=== PATIENT | male | born 1960 | race Caucasian/White ===

== ENCOUNTER 2020-02-03 14:06 | Inpatient (IN) | payer OTHER ==
[~2020-02-03] VITALS: Ht 170.2 cm; Wt 112.5 kg
[2020-02-03] VITALS (29 sets, daily range): BP systolic 84–146; BP diastolic 36–123
[2020-02-03 15:03] LABS: INR 2.74 (0.85-1.17); PROTIME 28.6 SECONDS (11.6-15.0)
[2020-02-03 15:06] LABS: HEMOGLOBIN 15.8 g/dL (13.5-17.5); MCH 31.4 pg (26.0-34.0); MCHC 35.1 g/dL (31.0-37.0); MCV 89.5 fL (80.0-100.0); MEAN PLATELET VOLUME 9.2 fL (7.4-10.4); PLATELET COUNT 118 10x3/uL (130-400); RBC 5.03 10x6/uL (4.20-6.10); WBC 24.4 10x3/uL (4.8-10.8)
[2020-02-03 15:14] LABS: LYMPHOCYTES 10 % (15-50); NEUTROPHILS 87 % (40-80); PLATELET ESTIMATE DECREASED
[2020-02-03 15:18] LABS: ALBUMIN 3.5 g/dL (3.4-5.0); BILIRUBIN - TOTAL 3.76 mg/dL (0.2-1.3); CALCIUM 7.7 mg/dL (8.5-10.1); CREATININE - SERUM 3.8 mg/dL (0.6-1.3); PROTEIN - SERUM 6.5 g/dL (6.4-8.2)
[2020-02-03 15:28] LABS: ANION GAP 33.4 mmol/L (8-16)
[2020-02-03 15:31] LABS: CARBON DIOXIDE 7.6 mmol/L (21.0-32.0)
[2020-02-03 16:05] LABS: LIPASE 2942 U/L (73-393)
[2020-02-03 16:06] LABS: AMYLASE - SERUM 1802 U/L (25-115)
[2020-02-03 16:17] LABS: CKMB 28.3 U/L (0.0-3.6); CREATINE KINASE 439 UL (21-232)
[2020-02-03 16:34] LABS: TROPONIN-I 0.294 ng/mL (0.000-0.060)
[2020-02-03 17:13] LABS: BILIRUBIN NEGATIVE (NEGATIVE); KETONE NEGATIVE (NEGATIVE); NITRITE NEGATIVE (NEGATIVE); UROBILINOGEN NORMAL mg/dL (< 2)
[2020-02-03 17:16] LABS: BACTERIA MANY HPF (NONE SEEN); WHITE CELLS - URINE 0-5 HPF (0-1)
--- NOTE | 2020-02-03 19:31 | NUR ---
CALLED CONSULT TO DR SPRINGER, ORDERS RECIEVED FOR ABG'S WITH ONI AND CALL RESULTS
--- NOTE | 2020-02-03 19:47 | NUR ---
SPOKE WITH SOFIA FISHER ABOUT CONSULT, ECHO ORDERED FOR AM
[2020-02-03 22:36] LABS: CHLORIDE - SERUM 106 mmol/L (98-107); CREATINE KINASE 217 UL (21-232); SODIUM 148 mmol/L (136-145)
[2020-02-03 22:52] LABS: CALC OSMOLALITY 350 mosm/kg (275-300); CREATININE - SERUM 2.2 mg/dL (0.6-1.3); UREA NITROGEN 46 mg/dL (7-18)
[2020-02-03 22:53] LABS: CALCIUM < 5.0 mg/dL (8.5-10.1); CARBON DIOXIDE 35.4 mmol/L (21.0-32.0); eGFR NON AFRICAN AMERICAN 32 mL/min (90-120)
[2020-02-03 22:54] LABS: GLUCOSE 902 mg/dL (74-106); POTASSIUM - SERUM 2.7 mmol/L (3.5-5.1); TROPONIN-I 0.409 ng/mL (0.000-0.060)
--- NOTE | 2020-02-03 23:00 | NUR ---
CALLED DR RAYMOND, GIVEN LAB RESULTS, ORDERS RECIEVED, NEW IV SITED IN RIGHT HAND BY ALEXA EVANS, PT C/O NAUSEA, GIVEN ZOFRAN IVP
[2020-02-04] VITALS (56 sets, daily range): BP systolic 85–156; BP diastolic 47–90; BMI 39.0
[2020-02-04 02:57] LABS: BASOPHILS 0.1 % (0-2); EOSINOPHILS 0 % (0-7); HEMOGLOBIN 12.7 g/dL (13.5-17.5); IMMATURE GRANULOCYTES 0.2 % (0-5); LYMPHOCYTES 5.2 % (15-50); MCH 31.4 pg (26.0-34.0); MCHC 36.3 g/dL (31.0-37.0); MEAN PLATELET VOLUME 9.5 fL (7.4-10.4); MONOCYTES 7.9 % (2-11); NEUTROPHILS 86.6 % (40-80); RBC 4.05 10x6/uL (4.20-6.10); RDW 14.2 % (11.5-14.5)
[2020-02-04 02:58] LABS: MCV 86.4 fL (80.0-100.0); PLATELET COUNT 70 10x3/uL (130-400); WBC 10.3 10x3/uL (4.8-10.8)
[2020-02-04 02:59] LABS: PLATELET ESTIMATE DECREASED
[2020-02-04 03:10] LABS: ALBUMIN 3.4 g/dL (3.4-5.0); ALKALINE PHOSPHATASE 104 U/L (30-120); ALT (SGPT) 388 U/L (10-68); BILIRUBIN - TOTAL 3.09 mg/dL (0.2-1.3); CHLORIDE - SERUM 98 mmol/L (98-107); CKMB 27.8 U/L (0.0-3.6); PROTEIN - SERUM 5.5 g/dL (6.4-8.2); SODIUM 134 mmol/L (136-145); VANCOMYCIN - RANDOM 11.9 ug/mL (10.0-20.0)
[2020-02-04 03:11] LABS: CALC OSMOLALITY 290 mosm/kg (275-300); CARBON DIOXIDE 12.3 mmol/L (21.0-32.0); CREATINE KINASE 286 UL (21-232); CREATININE - SERUM 3.5 mg/dL (0.6-1.3); GLUCOSE 94 mg/dL (74-106); POTASSIUM - SERUM 3.9 mmol/L (3.5-5.1); UREA NITROGEN 76 mg/dL (7-18); eGFR NON AFRICAN AMERICAN 19 mL/min (90-120)
[2020-02-04 10:51] LABS: COMPLEMENT C4 16.1 mg/dL (17.4-52.2)
[2020-02-04 10:58] LABS: ANION GAP 29.9 mmol/L (8-16); CALCIUM 7.1 mg/dL (8.5-10.1); CARBON DIOXIDE 12.2 mmol/L (21.0-32.0); CREATININE - SERUM 3.7 mg/dL (0.6-1.3); POTASSIUM - SERUM 4.1 mmol/L (3.5-5.1)
[2020-02-04 11:05] LABS: CKMB 29.9 U/L (0.0-3.6); CREATINE KINASE 321 UL (21-232); TROPONIN-I 1.002 ng/mL (0.000-0.060)
[2020-02-04 11:40] LABS: ERYTHROCYTE SEDIMENTATION RATE 9 mm/hr (0-20)
--- NOTE | 2020-02-04 17:40 | NUR ---
DR. MENEZES HERE IN ROOM PATIENT INTUBATED AND CVL/ARTLINE PLACEMENT PROCEDURE BEING DONE AT THIS TIME. OGT PLACEMENT COMPLETE.
[2020-02-04 17:44] LABS: CALCIUM 7.1 mg/dL (8.5-10.1); CREATININE - SERUM 3.7 mg/dL (0.6-1.3)
[2020-02-04 17:49] LABS: ANION GAP 25.8 mmol/L (8-16); CARBON DIOXIDE 17.6 mmol/L (21.0-32.0); POTASSIUM - SERUM 3.4 mmol/L (3.5-5.1)
[2020-02-04 22:21] LABS: ANION GAP 18.7 mmol/L (8-16); CARBON DIOXIDE 22.3 mmol/L (21.0-32.0); CREATININE - SERUM 3.2 mg/dL (0.6-1.3)
[2020-02-05] VITALS (82 sets, daily range): BP systolic 89–149; BP diastolic 48–80
--- NOTE | 2020-02-05 00:03 | NUR ---
CALLED CARDIOLOGY, SPOKE WITH SOFIA FISHER APN, PT IN AFIB WITH RVR RATE 150'S, NEW ORDERS RECIEVED
[2020-02-05 03:49] LABS: BASOPHILS 0 % (0-2); EOSINOPHILS 0 % (0-7); HEMATOCRIT 34.2 % (42.0-54.0); HEMOGLOBIN 12.2 g/dL (13.5-17.5); IMMATURE GRANULOCYTES 0.4 % (0-5); LYMPHOCYTES 10.9 % (15-50); MCH 30.8 pg (26.0-34.0); MCHC 35.7 g/dL (31.0-37.0); MCV 86.4 fL (80.0-100.0); MEAN PLATELET VOLUME 9.2 fL (7.4-10.4); MONOCYTES 8.3 % (2-11); NEUTROPHILS 80.4 % (40-80); RBC 3.96 10x6/uL (4.20-6.10); RDW 14.4 % (11.5-14.5)
[2020-02-05 04:02] LABS: PLATELET COUNT 51 10x3/uL (130-400); PLATELET ESTIMATE DECREASED
[2020-02-05 04:22] LABS: ALBUMIN 3.2 g/dL (3.4-5.0); BILIRUBIN - TOTAL 2.47 mg/dL (0.2-1.3); MAGNESIUM - SERUM 1.8 mg/dL (1.8-2.4); PROTEIN - SERUM 5.2 g/dL (6.4-8.2); VANCOMYCIN - RANDOM 12.5 ug/mL (10.0-20.0)
[2020-02-05 04:32] LABS: ANION GAP 13.5 mmol/L (8-16); CARBON DIOXIDE 30.1 mmol/L (21.0-32.0); POTASSIUM - SERUM 2.6 mmol/L (3.5-5.1)
[2020-02-05 08:13] LABS: ANA REFLEX - DIRECT Negative (Negative)
[2020-02-05 10:03] LABS: ANION GAP 10.7 mmol/L (8-16); CALCIUM 7.4 mg/dL (8.5-10.1); CARBON DIOXIDE 33.2 mmol/L (21.0-32.0); CREATININE - SERUM 2.5 mg/dL (0.6-1.3)
[2020-02-05 10:06] LABS: POTASSIUM - SERUM 2.9 mmol/L (3.5-5.1)
[2020-02-05 17:09] LABS: SPE - A/G RATIO 2.1 (0.7-1.7); SPE - ALBUMIN 3.6 g/dL (2.9-4.4); SPE - ALPHA-1 GLOBULIN 0.1 g/dL (0.0-0.4); SPE - ALPHA-2 GLOBULIN 0.3 g/dL (0.4-1.0); SPE - BETA GLOBULIN 0.6 g/dL (0.7-1.3); SPE - GAMMA GLOBULIN 0.6 g/dL (0.4-1.8); SPE - M-SPIKE Not Observed g/dL (Not Observed); SPE - TOTAL PROTEIN 5.3 g/dL (6.0-8.5)
[2020-02-05 17:29] LABS: ANION GAP 10.4 mmol/L (8-16); CALCIUM 7.3 mg/dL (8.5-10.1); CARBON DIOXIDE 32.5 mmol/L (21.0-32.0); CREATININE - SERUM 2.1 mg/dL (0.6-1.3)
[2020-02-05 17:31] LABS: POTASSIUM - SERUM 2.9 mmol/L (3.5-5.1)
--- NOTE | 2020-02-05 18:10 | NUR ---
0700. head to toe assessment completed. pt unresponsive. decreased fent. Lt dried drainage. intact. NG noted to be unsecured. Auscultated placement. Secured to et tube. repositioned. HR 130-140 with cardizem @ 10 mg/ml, amiodarone 1 mg/ml. Levophed infusing at 8mcg/min. 0900 Cely at bedside. updated condition. orders recieved to administer metoprolol q 6 hrs, and to increase cardizem to 15. Updated labs. orders recieved to administer 2 potassium riders then recheck after 2 hours after potassium has infused. 1000 Dr Ruelas at bedside. provided update, and orders about potassium. No new orders recieved. dr Vann at bedside. Updated Condition. Stated pt was unresponsive and fent gtt was decreased. 1100 reassessmdent completed. no changes noted. 1400 Sue PARMAR at bedside. updated conditon. dark blood noted on pillow case, and small amount pooled in mouth. suctioned out 150 ml dark blood. no blood noted in ett, scant amount noted in ogt. no new orders. Pt with eyes open. Grimacing with pain. Resumed Fent at 100mcg. 1500 Dr Domínguez at bedside. Updated Conditon. No new orders. Verbalized that if pt has not had a bowel movement by tomorrow he will increase the lactulose. 1700 Dr Vann rounding. Updated conditon. Dr Vann stated not to increase the sedation up to 400 mcg.
--- NOTE | 2020-02-05 20:15 | MORECARE ---
CASE MANAGEMENT DISCHARGE SUMMARY PATIENT: CANDIDO ESTEVEZ UNIT: [id number] ADM DATE: 02/03/20 AGE: 60 : 56 SEX: M ROOM/BED: D.2308 AUTHOR: RUPERTO PIERRE PHYSICIAN: REFERRING PHYSICIAN: MAXINE NAYAK DO DATE OF SERVICE: 02/05/20 Discharge Plan Patient Name: CANDIDO ESTEVEZ Facility: [facility]:[place] : 1960 Planned Disposition: Anticipated Discharge Date: Discharge Date: Expected LOS: Initial Reviewer: [email or web address] Initial Review Date: 02/03/2020 Generated: 02/05/20 9:15 pm Comments DCP- Discharge Planning Updated by [email or web address]: Joann Nice on 02/05/20 7:[address] CM attempted to patient ombudsperson of contact Nimco Lester [phone]. CM didn't get an answer. CM will continue to try to get discharge planning assessment completed. Patient is currently on vent and sedated. Patient Name: CANDIDO ESTEVEZ Page [id number] at 2015 All edits/amendments must be made on the electronic document DICTATION DATE: 02/05/202014 SET O TYPE OPERATOR: ALEXANDREA 02/05/202014 RPT#: [id number] DC DATE: STATUS: ADM IN [facility] [address] [place] [address] END OF REPORT
[2020-02-05 22:00] LABS: ANION GAP 7.6 mmol/L (8-16); CALCIUM 7.3 mg/dL (8.5-10.1); CARBON DIOXIDE 32.4 mmol/L (21.0-32.0)
[2020-02-06] VITALS (20 sets, daily range): BP systolic 81–138; BP diastolic 49–80
[2020-02-06 04:39] LABS: BASOPHILS 0.2 % (0-2); EOSINOPHILS 0 % (0-7); HEMATOCRIT 34.2 % (42.0-54.0); IMMATURE GRANULOCYTES 0.3 % (0-5); INR 1.63 (0.85-1.17); LYMPHOCYTES 6.7 % (15-50); MCH 30.8 pg (26.0-34.0); MCHC 35.1 g/dL (31.0-37.0); MCV 87.7 fL (80.0-100.0); MEAN PLATELET VOLUME 10.5 fL (7.4-10.4); MONOCYTES 9.1 % (2-11); NEUTROPHILS 83.7 % (40-80); PLATELET COUNT 53 10x3/uL (130-400); PROTIME 19.1 SECONDS (11.6-15.0); RDW 14.7 % (11.5-14.5); WBC 5.8 10x3/uL (4.8-10.8)
[2020-02-06 04:49] LABS: ANION GAP 8.9 mmol/L (8-16); BILIRUBIN - TOTAL 2.42 mg/dL (0.2-1.3); CALCIUM 7.6 mg/dL (8.5-10.1); CARBON DIOXIDE 31.1 mmol/L (21.0-32.0); CREATININE - SERUM 1.7 mg/dL (0.6-1.3); MAGNESIUM - SERUM 1.9 mg/dL (1.8-2.4); PROTEIN - SERUM 5.5 g/dL (6.4-8.2); VANCOMYCIN - RANDOM 9.6 ug/mL (10.0-20.0)
[2020-02-06 10:31] LABS: ANION GAP 4.8 mmol/L (8-16); CALCIUM 7.5 mg/dL (8.5-10.1); CREATININE - SERUM 1.6 mg/dL (0.6-1.3)
[2020-02-06 10:32] LABS: POTASSIUM - SERUM 2.8 mmol/L (3.5-5.1)
--- NOTE | 2020-02-06 12:34 | NUR ---
Nutrition follow-up: Pt remains intubated, sedated NPO OGT-LIWS Lactulose 30 ml TID Remains unresponsive per nurse Wt: 246# Labs reviewed; NH3: 90, trending down at this time RDN following.
[2020-02-06 14:11] LABS: UPE RAND - ALBUMIN 40.8 % (()); UPE RAND - ALPHA 1 GLOBULIN 3.6 % (()); UPE RAND - ALPHA 2 GLOBULIN 11.2 % (()); UPE RAND - BETA GLOBULIN 26.1 % (()); UPE RAND - GAMMA GLOBULIN 18.3 % (())
[2020-02-06 15:26] LABS: ANION GAP 4.5 mmol/L (8-16); CALCIUM 7.7 mg/dL (8.5-10.1); CARBON DIOXIDE 34.6 mmol/L (21.0-32.0); CREATININE - SERUM 1.5 mg/dL (0.6-1.3); POTASSIUM - SERUM 3.1 mmol/L (3.5-5.1)
[2020-02-06 21:19] LABS: ANION GAP 5.8 mmol/L (8-16); CALCIUM 7.5 mg/dL (8.5-10.1); CARBON DIOXIDE 33.1 mmol/L (21.0-32.0); CREATININE - SERUM 1.4 mg/dL (0.6-1.3)
[2020-02-06 21:22] LABS: POTASSIUM - SERUM 2.9 mmol/L (3.5-5.1)
[2020-02-07] VITALS (24 sets, daily range): BP systolic 101–142; BP diastolic 55–84
[2020-02-07 05:20] LABS: INR 1.51 (0.85-1.17); PROTIME 18.1 SECONDS (11.6-15.0)
[2020-02-07 05:27] LABS: ALBUMIN 2.9 g/dL (3.4-5.0); ANION GAP 2.3 mmol/L (8-16); BILIRUBIN - TOTAL 2.55 mg/dL (0.2-1.3); CALCIUM 7.8 mg/dL (8.5-10.1); CARBON DIOXIDE 36.9 mmol/L (21.0-32.0); CREATININE - SERUM 1.2 mg/dL (0.6-1.3); MAGNESIUM - SERUM 1.8 mg/dL (1.8-2.4); POTASSIUM - SERUM 3.2 mmol/L (3.5-5.1); PROTEIN - SERUM 5.5 g/dL (6.4-8.2); VANCOMYCIN - RANDOM 6.8 ug/mL (10.0-20.0)
[2020-02-07 05:52] LABS: BASOPHILS 0 % (0-2); EOSINOPHILS 0.3 % (0-7); HEMATOCRIT 35.4 % (42.0-54.0); IMMATURE GRANULOCYTES 0.2 % (0-5); MCH 30.7 pg (26.0-34.0); MCHC 33.9 g/dL (31.0-37.0); MEAN PLATELET VOLUME 9.7 fL (7.4-10.4); MONOCYTES 11.4 % (2-11); NEUTROPHILS 76.1 % (40-80); RBC 3.91 10x6/uL (4.20-6.10); RDW 14.8 % (11.5-14.5)
[2020-02-07 06:44] LABS: MCV 90.5 fL (80.0-100.0); PLATELET COUNT 44 10x3/uL (130-400)
--- NOTE | 2020-02-07 07:30 | NUR ---
PT LAYING IN BED, ORAL CARE PROVIDED AND SECREATIONS SUCTIONED, PT REPOSITIONED FOR COMFORT, WILL MONITOR
--- NOTE | 2020-02-07 09:45 | NUR ---
CONSENT OBTAINED FROM PATIENTS MOTHER FOR BRONCHOSCOPY
--- NOTE | 2020-02-07 09:49 | NUR ---
Nutrition follow-up: Intubated, sedated with fentanyl NPO Labs reviewed; NH3: 51, on lactulose TID Wt: 246# Recommend starting Pulmocare @ 20 ml/hr with increase to goal rate of 50 ml/hr RDN following.
[2020-02-07 09:50] LABS: PLATELET ESTIMATE DECREASED
[2020-02-07 09:51] LABS: HYPOCHROMASIA OCC
--- NOTE | 2020-02-07 10:00 | NUR ---
DR. LAI AT BEDSIDE FOR BRONCHOSCOPY, PT TOLERATED WELL, WILL MONITOR
--- NOTE | 2020-02-07 12:00 | NUR ---
ORAL CARE PROVIDED, REPOSIIONED FOR COMFORT, WILL MONITOR
[2020-02-07 12:12] LABS: ANTI-GLOMERULAR BASMENT MEMBRN 5 units (0-20)
--- NOTE | 2020-02-07 14:00 | NUR ---
ORAL CARE PROVIDED AND PT REPOSITIONED, WILL MONITOR
[2020-02-07 14:11] LABS: ANCA - ANTIMYELOPEROXIDASE <9.0 U/mL (0.0-9.0); ANCA - ANTIPROTEINASE 3 <3.5 U/mL (0.0-3.5); ANCA - ATYPICAL <1:20 titer (Neg:<1:20); ANCA - CYTOPLASMIC <1:20 titer (Neg:<1:20); ANCA - PERINUCLEAR <1:20 titer (Neg:<1:20)
--- NOTE | 2020-02-07 15:15 | NUR ---
CVL DRESSING CHANGED AT THIS TIME
--- NOTE | 2020-02-07 18:06 | NUR ---
ORAL CARE PROVIDED AND SECREATIONS SUCTIONED, PT POSITIONED FOR COMFORT, WILL MONITOR
[2020-02-08] VITALS (21 sets, daily range): BP systolic 118–154; BP diastolic 56–79
--- NOTE | 2020-02-08 03:11 | NUR ---
MOM CALLED AT 1943, 2029, 2119 FOR UPDATE. PASSCODE GIVEN EACH TIME AND UPDATE GIVEN
[2020-02-08 06:14] LABS: BASOPHILS 0.1 % (0-2); EOSINOPHILS 0.4 % (0-7); HEMOGLOBIN 12.4 g/dL (13.5-17.5); IMMATURE GRANULOCYTES 0.2 % (0-5); LYMPHOCYTES 11.7 % (15-50); MCH 30.2 pg (26.0-34.0); MCHC 32.6 g/dL (31.0-37.0); MEAN PLATELET VOLUME 9.7 fL (7.4-10.4); MONOCYTES 12.3 % (2-11); NEUTROPHILS 75.3 % (40-80); RDW 14.8 % (11.5-14.5)
[2020-02-08 06:25] LABS: MCV 92.7 fL (80.0-100.0); WBC 8.1 10x3/uL (4.8-10.8)
[2020-02-08 06:26] LABS: PLATELET COUNT 67 10x3/uL (130-400)
[2020-02-08 06:41] LABS: ALBUMIN 2.8 g/dL (3.4-5.0); BILIRUBIN - TOTAL 2.58 mg/dL (0.2-1.3); CARBON DIOXIDE 32.1 mmol/L (21.0-32.0); CREATININE - SERUM 1.1 mg/dL (0.6-1.3); MAGNESIUM - SERUM 1.8 mg/dL (1.8-2.4); POTASSIUM - SERUM 3.1 mmol/L (3.5-5.1); PROTEIN - SERUM 5.7 g/dL (6.4-8.2)
[2020-02-08 06:45] LABS: INR 1.55 (0.85-1.17); PROTIME 18.4 SECONDS (11.6-15.0)
--- NOTE | 2020-02-08 07:15 | NUR ---
PT RESTING COMFORTABLE, ORAL CARE PROVIDED AND SECREATIONS SUCTIONED, POSITIONED FOR COMFORT, WILL MONITOR
--- NOTE | 2020-02-08 08:15 | NUR ---
URINE SENT TO THE LAB
--- NOTE | 2020-02-08 08:40 | NUR ---
DR. LAI HERE SEEING PATIENT
--- NOTE | 2020-02-08 09:55 | NUR ---
AMIODARONVicky JOHNSTON DC'D PER DR KHAN
--- NOTE | 2020-02-08 10:15 | NUR ---
DR. NAYAK HERE SEEING PATIENT
--- NOTE | 2020-02-08 12:00 | NUR ---
COMPLETE BED BATH GIVEN AT THIS TIME AND LINENS CHANGED, ORAL CARE PROVIDED AND PT REPOSITIONED FOR COMFORT, WILL MONITOR
[2020-02-08 13:08] LABS: MAGNESIUM - SERUM 1.7 mg/dL (1.8-2.4); POTASSIUM - SERUM 3.2 mmol/L (3.5-5.1)
--- NOTE | 2020-02-08 14:00 | NUR ---
ORAL CARE PROVIDED AND PT REPOSITIONED, WILL MONITOR
--- NOTE | 2020-02-08 16:00 | NUR ---
ORAL SECREATIONS SUCTIONED AND REPOSITIONED, WILL MONITOR
--- NOTE | 2020-02-08 16:24 | NUR ---
REPORT CALLED TO JACQUELINE EVANS IN CVICU
--- NOTE | 2020-02-08 17:30 | NUR ---
pt transferred to cvicu at this time
[2020-02-09] VITALS (24 sets, daily range): BP systolic 104–150; BP diastolic 52–76
[2020-02-09 05:55] LABS: BASOPHILS 0 % (0-2); EOSINOPHILS 2.2 % (0-7); HEMOGLOBIN 12.3 g/dL (13.5-17.5); IMMATURE GRANULOCYTES 0.5 % (0-5); LYMPHOCYTES 16.2 % (15-50); MCH 30.3 pg (26.0-34.0); MCHC 32.4 g/dL (31.0-37.0); MCV 93.6 fL (80.0-100.0); MEAN PLATELET VOLUME 9.7 fL (7.4-10.4); MONOCYTES 16.3 % (2-11); NEUTROPHILS 64.8 % (40-80); PLATELET COUNT 65 10x3/uL (130-400); RBC 4.06 10x6/uL (4.20-6.10); RDW 14.5 % (11.5-14.5)
[2020-02-09 06:05] LABS: WBC 5.6 10x3/uL (4.8-10.8)
[2020-02-09 06:27] LABS: PLATELET ESTIMATE DECREASED
[2020-02-09 06:32] LABS: ALBUMIN 2.5 g/dL (3.4-5.0); ANION GAP 7.4 mmol/L (8-16); BILIRUBIN - TOTAL 2.03 mg/dL (0.2-1.3); CARBON DIOXIDE 31.8 mmol/L (21.0-32.0); CREATININE - SERUM 1.1 mg/dL (0.6-1.3); MAGNESIUM - SERUM 1.9 mg/dL (1.8-2.4); POTASSIUM - SERUM 3.2 mmol/L (3.5-5.1); PROTEIN - SERUM 5.5 g/dL (6.4-8.2)
[2020-02-09 06:36] LABS: INR 1.52 (0.85-1.17); PROTIME 18.2 SECONDS (11.6-15.0)
--- NOTE | 2020-02-09 20:57 | NUR ---
PT'S MOTHER CALLED, PASSWORD PROVIDED. UPDATED ON PT STATUS.
[2020-02-10] VITALS (47 sets, daily range): BP systolic 93–155; BP diastolic 37–70
[2020-02-10 06:09] LABS: BASOPHILS 0 % (0-2); EOSINOPHILS 1.8 % (0-7); HEMATOCRIT 37.9 % (42.0-54.0); HEMOGLOBIN 12.1 g/dL (13.5-17.5); IMMATURE GRANULOCYTES 0.4 % (0-5); LYMPHOCYTES 15.1 % (15-50); MCH 30.3 pg (26.0-34.0); MCHC 31.9 g/dL (31.0-37.0); MCV 94.8 fL (80.0-100.0); MEAN PLATELET VOLUME 9.6 fL (7.4-10.4); MONOCYTES 17.2 % (2-11); NEUTROPHILS 65.5 % (40-80); RDW 14.4 % (11.5-14.5); WBC 5.7 10x3/uL (4.8-10.8)
[2020-02-10 06:16] LABS: PLATELET COUNT 80 10x3/uL (130-400)
[2020-02-10 06:17] LABS: INR 1.6 (0.85-1.17); PROTIME 18.9 SECONDS (11.6-15.0)
[2020-02-10 06:42] LABS: ALBUMIN 2.4 g/dL (3.4-5.0); ALKALINE PHOSPHATASE 88 U/L (30-120); CALC OSMOLALITY 298 mosm/kg (275-300); CALCIUM 8.2 mg/dL (8.5-10.1); CARBON DIOXIDE 30.7 mmol/L (21.0-32.0); CHLORIDE - SERUM 110 mmol/L (98-107); GLUCOSE 164 mg/dL (74-106); POTASSIUM - SERUM 3.7 mmol/L (3.5-5.1); PROTEIN - SERUM 5.4 g/dL (6.4-8.2); SODIUM 147 mmol/L (136-145); UREA NITROGEN 20 mg/dL (7-18); eGFR NON AFRICAN AMERICAN 80 mL/min (90-120)
[2020-02-10 06:46] LABS: ALT (SGPT) 56 U/L (10-68)
[2020-02-10 09:38] LABS: PLATELET ESTIMATE DECREASED
--- NOTE | 2020-02-10 10:00 | NUR ---
CARDIOLOGY ACCOUNTING ASSOCIATE, SOFIA, ROUNDING ON PT.
--- NOTE | 2020-02-10 10:23 | NUR ---
Nutrition Follow-up: Remains intubated. No nutrition support. Noted BM yesterday. WT: 255.7# (02/09) Labs noted: Na 147, Glu 164, Ca 8.2, Alb 2.4 Meds noted: Lactulose, Protonix, Humalog, Florajen, D5W @ 50 -NPO x 6 days. Rec initiate nutrition support as medically feasible. -Monitor wt. -RD following.
[2020-02-10 13:09] LABS: FUNGUS STAIN Final report (())
--- NOTE | 2020-02-10 20:00 | NUR ---
DR BOWSER UPDATED PT'S MOTHER.
[2020-02-11] VITALS (24 sets, daily range): BP systolic 106–144; BP diastolic 43–65
[2020-02-11 04:37] LABS: BASOPHILS 0 % (0-2); EOSINOPHILS 2.2 % (0-7); HEMATOCRIT 34.3 % (42.0-54.0); HEMOGLOBIN 10.9 g/dL (13.5-17.5); IMMATURE GRANULOCYTES 0.5 % (0-5); LYMPHOCYTES 14.3 % (15-50); MCHC 31.8 g/dL (31.0-37.0); MCV 94.5 fL (80.0-100.0); MEAN PLATELET VOLUME 9.6 fL (7.4-10.4); MONOCYTES 13.3 % (2-11); NEUTROPHILS 69.7 % (40-80); PLATELET COUNT 76 10x3/uL (130-400); RBC 3.63 10x6/uL (4.20-6.10); WBC 4.1 10x3/uL (4.8-10.8)
[2020-02-11 04:48] LABS: INR 1.59 (0.85-1.17); PROTIME 18.8 SECONDS (11.6-15.0)
[2020-02-11 04:49] LABS: APTT 41.9 SECONDS (22.8-39.4)
[2020-02-11 04:54] LABS: ALBUMIN 2.1 g/dL (3.4-5.0); ALKALINE PHOSPHATASE 71 U/L (30-120); AMYLASE - SERUM 45 U/L (25-115); BILIRUBIN - TOTAL 1.46 mg/dL (0.2-1.3); CALC OSMOLALITY 285 mosm/kg (275-300); CALCIUM 7.7 mg/dL (8.5-10.1); CARBON DIOXIDE 31.6 mmol/L (21.0-32.0); CHLORIDE - SERUM 109 mmol/L (98-107); CREATININE - SERUM 0.9 mg/dL (0.6-1.3); GLUCOSE 141 mg/dL (74-106); LDH 171 U/L (85-227); LIPASE 151 U/L (73-393); MAGNESIUM - SERUM 1.7 mg/dL (1.8-2.4); PHOSPHOROUS 2.2 mg/dL (2.5-4.9); POTASSIUM - SERUM 3.3 mmol/L (3.5-5.1); PROTEIN - SERUM 4.7 g/dL (6.4-8.2); SODIUM 142 mmol/L (136-145); TROPONIN-I 0.029 ng/mL (0.000-0.060); UREA NITROGEN 15 mg/dL (7-18); eGFR NON AFRICAN AMERICAN > 90 mL/min (90-120)
[2020-02-11 05:05] LABS: ALT (SGPT) 34 U/L (10-68); D-DIMER-QUANTITATIVE 3.79 ug/mLFEU (0.20-0.54)
--- NOTE | 2020-02-11 05:23 | NUR ---
PULMONARY SERVICED CALLED FOR CRITICAL LABS. AWAITING RETURN CALL FROM
[2020-02-11 08:03] LABS: BILIRUBIN NEGATIVE (NEGATIVE); KETONE NEGATIVE (NEGATIVE); NITRITE NEGATIVE (NEGATIVE); UROBILINOGEN NORMAL mg/dL (< 2)
[2020-02-11 08:06] LABS: BACTERIA FEW HPF (NONE SEEN); EPITHELIAL CELLS 0-5 /hpf (0-5); WHITE CELLS - URINE OCC HPF (0-1)
[2020-02-11 10:31] LABS: CREATININE - URINE 90.1 mg/dL (30-125); PRO/CRE RATIO URINE 0.6 mg/g
--- NOTE | 2020-02-11 10:55 | NUR ---
Call received from patient's mother. Passcode verified. Update given. Explained he is still on vent at 40%. Waiting on Dr. Trinidad to round to see if we will wean vent today.
--- NOTE | 2020-02-11 15:16 | NUR ---
Call received from pt's mother. No changes since last time nurse spoke with her.
[2020-02-12] VITALS (22 sets, daily range): BP systolic 89–135; BP diastolic 49–64
[2020-02-12 05:43] LABS: BASOPHILS 0 % (0-2); EOSINOPHILS 1.8 % (0-7); HEMATOCRIT 31.1 % (42.0-54.0); HEMOGLOBIN 9.9 g/dL (13.5-17.5); IMMATURE GRANULOCYTES 0.3 % (0-5); LYMPHOCYTES 15.6 % (15-50); MCH 29.7 pg (26.0-34.0); MCHC 31.8 g/dL (31.0-37.0); MCV 93.4 fL (80.0-100.0); MEAN PLATELET VOLUME 9.6 fL (7.4-10.4); MONOCYTES 9.3 % (2-11); PLATELET COUNT 89 10x3/uL (130-400); RBC 3.33 10x6/uL (4.20-6.10); RDW 13.8 % (11.5-14.5)
[2020-02-12 06:00] LABS: INR 1.7 (0.85-1.17); PROTIME 19.8 SECONDS (11.6-15.0)
[2020-02-12 06:03] LABS: ALBUMIN 1.6 g/dL (3.4-5.0); ALKALINE PHOSPHATASE 58 U/L (30-120); BILIRUBIN - TOTAL 1.16 mg/dL (0.2-1.3); CARBON DIOXIDE 28.2 mmol/L (21.0-32.0); CHLORIDE - SERUM 110 mmol/L (98-107); CREATININE - SERUM 0.7 mg/dL (0.6-1.3); GLUCOSE 113 mg/dL (74-106); MAGNESIUM - SERUM 1.4 mg/dL (1.8-2.4); PROTEIN - SERUM 3.9 g/dL (6.4-8.2); SODIUM 142 mmol/L (136-145); eGFR NON AFRICAN AMERICAN > 90 mL/min (90-120)
[2020-02-12 06:26] LABS: ALT (SGPT) 25 U/L (10-68); CALC OSMOLALITY 282 mosm/kg (275-300); UREA NITROGEN 10 mg/dL (7-18)
[2020-02-12 06:27] LABS: CALCIUM 6.6 mg/dL (8.5-10.1); POTASSIUM - SERUM 2.9 mmol/L (3.5-5.1)
--- NOTE | 2020-02-12 07:30 | NUR ---
pt resting comfortable, oral care provided, no acute distress noted at this time, pt repositioned, pt opens eyes and follows simple commands, will monitor
--- NOTE | 2020-02-12 09:30 | NUR ---
no changes, eyes closed, will monitor
--- NOTE | 2020-02-12 09:50 | NUR ---
Nutrition Consult/Follow-up: Pt remains intubated. Received consult for nutrition support. Wt: 253.5# (02/10) Last BM: 02/09 per chart Labs noted: K+ 2.9, Glu 113, Ca 6.6, Mg 1.4, Alb 1.6 Meds noted: Lactulose, Protonix, Humalog, Florajen, D5W @ 40, electrolyte protocol -Start Pulmocare @ 20 mL/hr (5 drops/minute) and increase by 10 mL/hr q 6 hrs to goal rate of 50 mL/hr (12 drops/minute) + H2O flushes 100 mL q 4 hrs. -Monitor wt. -RD following.
--- NOTE | 2020-02-12 10:40 | NUR ---
pt biting ET tube and awake, Dr. Trinidad notified, pt started on propofol at 5mcg/kg/min, will monitor
--- NOTE | 2020-02-12 10:45 | NUR ---
pt biting ET tube and fighting the vent, propofol drip increased to 10mcg/kg/min, will monitor
--- NOTE | 2020-02-12 10:52 | NUR ---
pt continues to bite ET tube and move around, propofol drip increased to 15mcg/kg/min, will monitor
--- NOTE | 2020-02-12 12:30 | NUR ---
mother at bedside speaking with about pts condition
--- NOTE | 2020-02-12 13:45 | NUR ---
pt repositioned at this time, Dr. Trinidad here seeing patient, decreased FIO2 to 30%, tolerating well
--- NOTE | 2020-02-12 14:15 | NUR ---
tube feedings started at this time, pulmocare at 20ml/hr with 100ml h2o flush every 4 hrs via OG tube, HOB elevated, will monitor
--- NOTE | 2020-02-12 14:15 | NUR ---
kaley 2, fentanyl decreased to 150mcg/hr
--- NOTE | 2020-02-12 17:00 | NUR ---
repositioned for comfort, oral care provided, no acute dsitress noted, will monitor
[2020-02-13] VITALS (28 sets, daily range): BP systolic 87–138; BP diastolic 51–79
[2020-02-13 06:10] LABS: BASOPHILS 0.2 % (0-2); EOSINOPHILS 1.4 % (0-7); HEMATOCRIT 32.5 % (42.0-54.0); HEMOGLOBIN 10.6 g/dL (13.5-17.5); IMMATURE GRANULOCYTES 0.2 % (0-5); LYMPHOCYTES 17.7 % (15-50); MCH 30.1 pg (26.0-34.0); MCHC 32.6 g/dL (31.0-37.0); MCV 92.3 fL (80.0-100.0); MEAN PLATELET VOLUME 10.4 fL (7.4-10.4); MONOCYTES 9.7 % (2-11); NEUTROPHILS 70.8 % (40-80); RBC 3.52 10x6/uL (4.20-6.10); RDW 13.8 % (11.5-14.5); WBC 4.2 10x3/uL (4.8-10.8)
[2020-02-13 06:13] LABS: PLATELET COUNT 138 10x3/uL (130-400)
[2020-02-13 06:34] LABS: INR 1.48 (0.85-1.17); PROTIME 17.8 SECONDS (11.6-15.0)
--- NOTE | 2020-02-13 07:30 | NUR ---
oral care provided and secreations suctioned, pt repositioned for comfort, will monitor
[2020-02-13 08:56] LABS: ALBUMIN 1.9 g/dL (3.4-5.0); ALKALINE PHOSPHATASE 89 U/L (30-120); ALT (SGPT) 26 U/L (10-68); BILIRUBIN - TOTAL 1.23 mg/dL (0.2-1.3); CALC OSMOLALITY 279 mosm/kg (275-300); CARBON DIOXIDE 32.7 mmol/L (21.0-32.0); CHLORIDE - SERUM 105 mmol/L (98-107); CREATININE - SERUM 0.8 mg/dL (0.6-1.3); GLUCOSE 144 mg/dL (74-106); SODIUM 139 mmol/L (136-145); UREA NITROGEN 9 mg/dL (7-18); eGFR NON AFRICAN AMERICAN > 90 mL/min (90-120)
[2020-02-13 08:57] LABS: MAGNESIUM - SERUM 2.1 mg/dL (1.8-2.4); POTASSIUM - SERUM 3.6 mmol/L (3.5-5.1)
--- NOTE | 2020-02-13 10:25 | NUR ---
STARTED PS TRIALS AT 1015
--- NOTE | 2020-02-13 11:25 | NUR ---
Dr. Ly here seeing patient
--- NOTE | 2020-02-13 13:10 | NUR ---
large liquid BM noted, kiersten care given and linens changed, pt repositioned for comfort, will monitor
--- NOTE | 2020-02-13 13:50 | NUR ---
Dr. Trinidad here seeing patient
--- NOTE | 2020-02-13 16:45 | NUR ---
oral care provided and secreations suctioned, positioned for comfort, will monitor
--- NOTE | 2020-02-13 17:15 | NUR ---
OG tube residual 15ml, tube feeds increased to 40ml/hr, HOB elevated, will monitor
--- NOTE | 2020-02-13 22:54 | NUR ---
PT'S FAMILY MEMBER SPOKEN WITH, UPDATED ON PT STATUS.
[2020-02-14] VITALS (28 sets, daily range): BP systolic 80–152; BP diastolic 38–88
[2020-02-14 05:47] LABS: BASOPHILS 0 % (0-2); EOSINOPHILS 0.9 % (0-7); HEMATOCRIT 31.7 % (42.0-54.0); HEMOGLOBIN 10.3 g/dL (13.5-17.5); IMMATURE GRANULOCYTES 0.2 % (0-5); LYMPHOCYTES 11.8 % (15-50); MCHC 32.5 g/dL (31.0-37.0); MCV 92.4 fL (80.0-100.0); MEAN PLATELET VOLUME 9.6 fL (7.4-10.4); MONOCYTES 8.8 % (2-11); NEUTROPHILS 78.3 % (40-80); PLATELET COUNT 119 10x3/uL (130-400); RBC 3.43 10x6/uL (4.20-6.10); RDW 13.9 % (11.5-14.5); WBC 4.3 10x3/uL (4.8-10.8)
[2020-02-14 05:58] LABS: INR 1.4 (0.85-1.17)
[2020-02-14 06:13] LABS: ALBUMIN 1.9 g/dL (3.4-5.0); ALKALINE PHOSPHATASE 99 U/L (30-120); ALT (SGPT) 23 U/L (10-68); BILIRUBIN - TOTAL 0.81 mg/dL (0.2-1.3); CALC OSMOLALITY 279 mosm/kg (275-300); CALCIUM 8.1 mg/dL (8.5-10.1); CHLORIDE - SERUM 105 mmol/L (98-107); CREATININE - SERUM 0.9 mg/dL (0.6-1.3); GLUCOSE 149 mg/dL (74-106); MAGNESIUM - SERUM 1.9 mg/dL (1.8-2.4); POTASSIUM - SERUM 3.4 mmol/L (3.5-5.1); PROTEIN - SERUM 5.1 g/dL (6.4-8.2); SODIUM 140 mmol/L (136-145); UREA NITROGEN 7 mg/dL (7-18); eGFR NON AFRICAN AMERICAN > 90 mL/min (90-120)
--- NOTE | 2020-02-14 12:25 | MORECARE ---
CASE MANAGEMENT DISCHARGE SUMMARY PATIENT: CANDIDO ESTEVEZ UNIT: [id number] ADM DATE: 02/03/20 AGE: 60 : 56 SEX: M ROOM/BED: D.[facility] AUTHOR: RUPERTO PIERRE PHYSICIAN: REFERRING PHYSICIAN: MAXINE NAYAK DO DATE OF SERVICE: 02/14/20 Discharge Plan Patient Name: CANDIDO ESTEVEZ Facility: [facility]:[place] : 1960 Planned Disposition: Anticipated Discharge Date: Discharge Date: Expected LOS: Initial Reviewer: [email or web address] Initial Review Date: 02/03/2020 Generated: 02/14/20 1:25 pm Comments DCP- Discharge Planning Updated by [email or web address]: Joann Nice on 02/14/20 11:[address] CM received a call from Vicki @ [place] casework specialist [phone]. checking on patient status. CM can call with discharge assistance. DCP- Discharge Planning Updated by [email or web address]: Joann Nice on 02/05/20 7:[address] CM attempted to personal property appraiser of contact Nimco Gonzalezroxana [phone]. CM didn't get an answer. CM will continue to try to get discharge planning assessment completed. Patient is currently on vent and sedated. Last DP export: 02/05/20 7:15 p Patient Name: CANDIDO ESTEVEZ Page 23209 at 1225 All edits/amendments must be made on the electronic document DICTATION DATE: 02/14/20 1225 SECTION CHIEF: ALEXANDREA 02/14/20 1225 RPT#: [id number] DC DATE: STATUS: ADM IN [facility] [address] [place] [address] END OF REPORT
--- NOTE | 2020-02-14 13:00 | NUR ---
NUTRITION F/U PT REMAINS ON VENT. TOLERATING PULMOCARE TUBE FEEDS AT 40 CC/HR WITH GOAL RATE 50 CC/HR. RD FOLLOWING
--- NOTE | 2020-02-14 16:43 | MORECARE ---
CASE MANAGEMENT DISCHARGE SUMMARY PATIENT: CANDIDO ESTEVEZ UNIT: [id number] ADM DATE: 02/03/20 AGE: 60 : 56 SEX: M ROOM/BED: D.CV02 AUTHOR: IGNACIO,DOC PHYSICIAN: REFERRING PHYSICIAN: MAXINE NAYAK DO DATE OF SERVICE: 02/14/20 Discharge Plan Patient Name: CANDIDO ESTEVEZ Facility: [facility]:[place] : 1960 Planned Disposition: Home Anticipated Discharge Date: Discharge Date: Expected LOS: Initial Reviewer: [email or web address] Initial Review Date: 02/03/2020 Generated: 02/14/20 5:43 pm Comments DCP- Discharge Planning Updated by [email or web address]: Joann Nice on 02/14/20 3:[address] Patient Name: CANDIDO ESTEVEZ Admission Status: ER Accout number: [id number] Admission Date: 02-03-2020 : 1960 Admission Diagnosis:ACUTE PANCREATITIS WITHOUT NECROSIS OR INFECTION, UNSP Attending: MAXINE NAYAK Current LOS: 11 Anticipated DC Date: Planned Disposition: Primary Insurance: [employer] Discharge Planning Comments: CM met with patient's mother Macey to complete initial dc planning assessment. CM educated patient on the CM role and verbal consent given by patient to complete assessment. Patient lives at home with family. Patient is independent. At discharge patient plans to return home and feels this is a safe discharge. CM discussed availability of home health, rehab services, and medical equipment. Patient will have family to transport home. Patient denied known discharge needs at this time. CM will continue to follow and will assist as needed with dc plans/needs. Engraver: Joann Nice DCP- Discharge Planning Updated by [email or web address]: Joann Nice on 02/14/20 11:[address] CM received a call from Vicki @ [place] showcase maker [phone]. checking on patient status. CM can call with discharge assistance. DCP- Discharge Planning Updated by [email or web address]: Joann Nice on 02/05/20 7:[address] CM attempted to personnel security assistant of contact Jaycob Lester [phone]. CM didn't get an answer. CM will continue to try to get discharge planning assessment completed. Patient is currently on vent and sedated. DCPIA - Discharge Planning Initial Assessment Updated by [email or web address]: Joann Nice on 02/14/20 4:40 pm * Is the patient Alert and Oriented? No * How many steps to enter\exit or inside your home? * [facility]CP [facility] * [facility]acy [facility] * Preadmission Environment Home with Family * ADLs Independent * List name and contact numbers for known caregivers / representatives who currently or will assist patient after discharge: JAYCOB [facility] - [phone] * Verbal permission to speak to the caregivers and representatives has been obtained from the patient. Yes * Community resources currently utilized None * Additional services required to return to the preadmission environment? No * Can the patient safely return to the preadmission environment? Yes * Has this patient been hospitalized within the prior 30 days at any hospital? No Last DP export: 02/14/20 11:25 a Patient Name: CANDIDO ESTEVEZ Page 01932 at 1643 All edits/amendments must be made on the electronic document DICTATION DATE: 02/14/201642 MOTOR AND GENERATOR BRUSH MAKER: ALEXANDREA 02/14/201642 RPT#: [id number] [place] DATE: STATUS: ADM IN [facility] [address] [place] [address] END OF REPORT
--- NOTE | 2020-02-14 19:27 | NUR ---
0715-RECIEVED PER FLOW SHEET-DIPRIVAN DECREASED TO 15MCG-FOR CPAP TRIAL ATTEMPT- 0830-MOTHER CALLED UNIT -UPDATE GIVEN 1045-DR LAI AT BEDSIDE-NO FURTHER ATTEMPT MADE FOR CPAP TRIAL-NOTED RR 40-COPIOUS JHBPLL-[id number]-EDSFP AMOUNT--INCONTINENT OF LARGE AMOUNT OF LIQUID FECES-COMPLETE SKIN CARE DONE 1110-INCONT OF LARGE AMOUNT OF LIQUID FECES-SKIN CARE DONE 1230-INCONT OF LARGE AMOUNT OF LIQUID FECES-NOTED OGT TUBE NO LONGER IN GSQC-BFKSVOD-PGIYODLEY COPIOUS ORAL SECRETIONS- 1600-REPLACED OGT WITH PLACEMENT CONFIRMED WITH [facility]-AND AIR BOLUS-PULMOCARE STARTED AT 40ML/H- 1700-TEMP 103.8-ORAL-DR AMES SERVICE CALLED-RETURN CALL MATIAS ROSE NPRN -ORDER RECIEVED AND NOTED 1730-URINE FOR C$S SENT- 174-BLOOD CULTURE OBTAINED FROM R RADIAL AKIKO AND L SUBCLAVIEN WHIT PORT-K SERUM SENT 1814-RT INFORMED OF NEED FOR SPUTUM CULTURE- 183-ATTEMPTED STOOL SAMPLE NONE AT THIS TIME 1840-TYLENOL 650 PER OGT
--- NOTE | 2020-02-14 21:00 | NUR ---
MOTHER CALLED TO GET PT UPDATE. QUESTIONS ANSWERED BEST POSSIBLE. CARES CONT.
--- NOTE | 2020-02-14 21:15 | NUR ---
CALLED [facility] AND SPOKE WITH MATIAS RUTH FOR INCREASED RR 40'S ELEVED B/P AND HR. MADE AWARE OF PROPOFOL DECREASED AT SHIFT CHANGE FOR DECLINING B/P. MADE AWARE PROPOFOL INCREASED TO 40 MCG/KG/MIN AT PRESENT. OK TOO TITRATE TO MAX OF 75 MCG/KG/MIN PER PROTOCOL AND TO CALL PULMONARY FOR FURTHUR SEDATION ORDERS. CARES CONT.
--- NOTE | 2020-02-14 21:42 | NUR ---
DR. BOWSER PAGED TO GIVE STATUS UPDATE WITH INCREASED RR, B/P HR AND VENT SETTINGS AND MEDS. PT RR 40'S. WILL CONT TO MONITOR. AWAITIING RETURN CALL TO CVICU.
--- NOTE | 2020-02-14 23:03 | NUR ---
REPAGED DR BOWSER TO GIVE HIM UPDATE WITH INCREASED RR AND MEDS. ART LINE POSITIONAL. AWAITING RETURN PAGE.
[2020-02-15] VITALS (80 sets, daily range): BP systolic 66–141; BP diastolic 28–68
[2020-02-15 05:43] LABS: BASOPHILS 0.1 % (0-2); EOSINOPHILS 0 % (0-7); HEMATOCRIT 32.6 % (42.0-54.0); HEMOGLOBIN 10.7 g/dL (13.5-17.5); IMMATURE GRANULOCYTES 1.4 % (0-5); MCH 30.3 pg (26.0-34.0); MCHC 32.8 g/dL (31.0-37.0); MCV 92.4 fL (80.0-100.0); MEAN PLATELET VOLUME 10.1 fL (7.4-10.4); NEUTROPHILS 88.5 % (40-80); PLATELET COUNT 91 10x3/uL (130-400); RBC 3.53 10x6/uL (4.20-6.10); RDW 14.3 % (11.5-14.5); WBC 10.3 10x3/uL (4.8-10.8)
[2020-02-15 05:51] LABS: ALBUMIN 1.9 g/dL (3.4-5.0); ANION GAP 9.8 mmol/L (8-16); BILIRUBIN - TOTAL 1.27 mg/dL (0.2-1.3); CALCIUM 7.8 mg/dL (8.5-10.1); CARBON DIOXIDE 27.9 mmol/L (21.0-32.0); POTASSIUM - SERUM 3.7 mmol/L (3.5-5.1); PROTEIN - SERUM 5.6 g/dL (6.4-8.2)
[2020-02-15 05:52] LABS: CREATININE - SERUM 1.2 mg/dL (0.6-1.3)
[2020-02-15 06:10] LABS: INR 1.62 (0.85-1.17); PROTIME 19.1 SECONDS (11.6-15.0)
--- NOTE | 2020-02-15 06:28 | NUR ---
DR. LAI PAGED TO INFORM HIM OF TEMP NOW 102.7. ICE PACKS PLACE TO AXILLA. AWAITING RETURN CALL
[2020-02-16] VITALS (51 sets, daily range): BP systolic 87–131; BP diastolic 49–76; Ht 170.2 cm; Wt 112.5 kg
[2020-02-16 05:20] LABS: BASOPHILS 0 % (0-2); EOSINOPHILS 0 % (0-7); HEMATOCRIT 28.8 % (42.0-54.0); HEMOGLOBIN 9.6 g/dL (13.5-17.5); IMMATURE GRANULOCYTES 0.7 % (0-5); LYMPHOCYTES 8.8 % (15-50); MCH 30.6 pg (26.0-34.0); MCHC 33.3 g/dL (31.0-37.0); MCV 91.7 fL (80.0-100.0); MEAN PLATELET VOLUME 11.1 fL (7.4-10.4); MONOCYTES 8.5 % (2-11); RBC 3.14 10x6/uL (4.20-6.10); WBC 8.5 10x3/uL (4.8-10.8)
[2020-02-16 05:21] LABS: PLATELET COUNT 57 10x3/uL (130-400)
[2020-02-16 05:34] LABS: ALBUMIN 1.6 g/dL (3.4-5.0); ALKALINE PHOSPHATASE 103 U/L (30-120); AMYLASE - SERUM 58 U/L (25-115); BILIRUBIN - TOTAL 0.79 mg/dL (0.2-1.3); CALCIUM 7.8 mg/dL (8.5-10.1); CARBON DIOXIDE 29.1 mmol/L (21.0-32.0); CHLORIDE - SERUM 105 mmol/L (98-107); CREATININE - SERUM 0.9 mg/dL (0.6-1.3); POTASSIUM - SERUM 4.2 mmol/L (3.5-5.1); PROTEIN - SERUM 5.1 g/dL (6.4-8.2); SODIUM 137 mmol/L (136-145); eGFR NON AFRICAN AMERICAN > 90 mL/min (90-120)
[2020-02-16 05:40] LABS: ALT (SGPT) 14 U/L (10-68); CALC OSMOLALITY 287 mosm/kg (275-300); GLUCOSE 305 mg/dL (74-106); LIPASE 392 U/L (73-393); UREA NITROGEN 20 mg/dL (7-18)
[2020-02-16 05:54] LABS: PLATELET ESTIMATE DECREASED
--- NOTE | 2020-02-16 09:49 | NUR ---
0850-JANIE STOVER TURNED OFF-97.2-MOTHER CALLED UNIT-UPDATE GIVEN 0910-DR AMES AT BEDSIDE-NOTED KLEB IN UKCIKK-AETPOGRVY-HH PLACED IN DROPLET ISOLATION-NOTIFIED MEDICAL ICU FOR PENDING TRANSFER TO ISOLATION RM
[2020-02-16 17:07] LABS: FACTOR VIII - APTT 1:1 60 MIN 28.8 sec (22.9-30.2); FACTOR VIII - APTT 1:1 NP 27.3 sec (22.9-30.2); FACTOR VIII ACTIVITY 220 % (56-140)
--- NOTE | 2020-02-16 17:10 | NUR ---
SPOKE TO PT MOTHER ON TELEPHONE-UPDATE GIVEN AND INFORMED OF TRANSFER TO MEDICAL ICU-REASON GIVEN-KLEBSELLA BACTERIA-AND CVICU = SURGICAL PT AND HIGH RISK TRANSFERRED VIA BED
--- NOTE | 2020-02-16 17:15 | NUR ---
PT TO ROOM 2307 FROM CV02. ON DROPLET PRECAUTIONS. HOOKED UP TO MONITORS.
[2020-02-17] VITALS (23 sets, daily range): BP systolic 91–136; BP diastolic 56–89
[2020-02-17 04:58] LABS: BASOPHILS 0 % (0-2); EOSINOPHILS 0 % (0-7); HEMATOCRIT 28.5 % (42.0-54.0); HEMOGLOBIN 9.2 g/dL (13.5-17.5); IMMATURE GRANULOCYTES 0.3 % (0-5); LYMPHOCYTES 7.7 % (15-50); MCH 29.6 pg (26.0-34.0); MCHC 32.3 g/dL (31.0-37.0); MCV 91.6 fL (80.0-100.0); MEAN PLATELET VOLUME 11.2 fL (7.4-10.4); MONOCYTES 6.6 % (2-11); NEUTROPHILS 85.4 % (40-80); RBC 3.11 10x6/uL (4.20-6.10)
[2020-02-17 05:10] LABS: PLATELET COUNT 73 10x3/uL (130-400); WBC 6.2 10x3/uL (4.8-10.8)
[2020-02-17 05:22] LABS: ALBUMIN 1.9 g/dL (3.4-5.0); ALKALINE PHOSPHATASE 95 U/L (30-120); ALT (SGPT) 15 U/L (10-68); BILIRUBIN - TOTAL 0.62 mg/dL (0.2-1.3); CARBON DIOXIDE 28.3 mmol/L (21.0-32.0); CHLORIDE - SERUM 108 mmol/L (98-107); POTASSIUM - SERUM 4.1 mmol/L (3.5-5.1); PROTEIN - SERUM 5.5 g/dL (6.4-8.2); SODIUM 140 mmol/L (136-145); UREA NITROGEN 24 mg/dL (7-18); eGFR NON AFRICAN AMERICAN 80 mL/min (90-120)
[2020-02-17 05:27] LABS: AMYLASE - SERUM 36 U/L (25-115); CALC OSMOLALITY 286 mosm/kg (275-300); GLUCOSE 176 mg/dL (74-106); LIPASE 142 U/L (73-393)
[2020-02-17 10:08] LABS: FUNGUS MYCOLOGY CULTURE Preliminary report (())
--- NOTE | 2020-02-17 10:45 | NUR ---
CHANGED TO CPAP MODE ON VENT BY RT, SEDATION TITRATED DOWN PROPOFAL AT 10 MCG AND FENT AT 25MCG, WILL CONTINUE TO MONITOR
--- NOTE | 2020-02-17 11:09 | NUR ---
Nutrition follow-up: Pt intubated; sedated with propofol @ 26.4 ml/hr CPAP trials today Pulmocare @ 10 ml/hr; goal rate is 50 ml/hr Labs reviewed Wt: 260# RDN following.
--- NOTE | 2020-02-17 11:13 | NUR ---
PS TRIAL 27/12
--- NOTE | 2020-02-17 15:30 | NUR ---
VENT ALARMING, AGITATED REACHING FOR ETT, COPIOUS SECRETIONS SUCTIONED, CHANGED BACK TO AC MODE, SEDATION TITRATED UP TO PREVIOUS SETTINGS ON VENT, 75 MCG FENT AND 25 MCG PROPOFAL
[2020-02-18] VITALS (22 sets, daily range): BP systolic 102–147; BP diastolic 61–82
[2020-02-18 04:38] LABS: BASOPHILS 0 % (0-2); EOSINOPHILS 0 % (0-7); HEMATOCRIT 26.8 % (42.0-54.0); HEMOGLOBIN 8.5 g/dL (13.5-17.5); IMMATURE GRANULOCYTES 0.6 % (0-5); LYMPHOCYTES 12.5 % (15-50); MCH 29.8 pg (26.0-34.0); MCHC 31.7 g/dL (31.0-37.0); MEAN PLATELET VOLUME 10.1 fL (7.4-10.4); MONOCYTES 6.7 % (2-11); NEUTROPHILS 80.2 % (40-80); PLATELET COUNT 87 10x3/uL (130-400); RBC 2.85 10x6/uL (4.20-6.10); RDW 14.1 % (11.5-14.5)
[2020-02-18 04:52] LABS: ALBUMIN 2.1 g/dL (3.4-5.0); ALKALINE PHOSPHATASE 76 U/L (30-120); ALT (SGPT) 14 U/L (10-68); AMYLASE - SERUM 31 U/L (25-115); BILIRUBIN - TOTAL 0.57 mg/dL (0.2-1.3); CALC OSMOLALITY 289 mosm/kg (275-300); CALCIUM 8.1 mg/dL (8.5-10.1); CARBON DIOXIDE 28.9 mmol/L (21.0-32.0); CHLORIDE - SERUM 111 mmol/L (98-107); GLUCOSE 147 mg/dL (74-106); POTASSIUM - SERUM 4.2 mmol/L (3.5-5.1); PROTEIN - SERUM 5.3 g/dL (6.4-8.2); SODIUM 142 mmol/L (136-145); UREA NITROGEN 25 mg/dL (7-18)
[2020-02-18 04:55] LABS: CREATININE - SERUM 0.7 mg/dL (0.6-1.3); LIPASE 78 U/L (73-393); eGFR NON AFRICAN AMERICAN > 90 mL/min (90-120)
[2020-02-18 05:07] LABS: PLATELET ESTIMATE DECREASED; WBC 3.4 10x3/uL (4.8-10.8)
--- NOTE | 2020-02-18 06:43 | NUR ---
PT FOLLOWING COMMANDS, AWAKE AND ALERT. NO ACUTE DISTRESS NOTED AT THIS TIME.
--- NOTE | 2020-02-18 09:52 | NUR ---
DR. LAI HERE FOR ROUNDS AND CONSENT FOR BRONCHOSCOPY OBTAINED AND TUBE FEEDING OFF AT PRESENT
[2020-02-18 10:12] LABS: VIRAL - RESULT No virus isolated. (())
--- NOTE | 2020-02-18 12:34 | NUR ---
PATIENT PLACED ON CPAP BU RESPIRATORY TODAY AFTER THE BRONCH WAS DONE FAMILY TALKED TO ABOUT BRONCH BY NURSE WELL.PATIENT EXTUBATED TO 6 LITERS NASAL CANNULA AND DECREASED FURTHER TO 5 LITERS. PATIENT ABLE TO SX SELF.
--- NOTE | 2020-02-18 22:47 | NUR ---
PT REMOVED BIPAP AND WILL NOT REPLACE. STATES HE WILL NOT WEAR IT AGAIN. WOULD PREFER A VENT TO WEARING THAT AGAIN.
[2020-02-19] VITALS (15 sets, daily range): BP systolic 132–159; BP diastolic 69–82
[2020-02-19 04:48] LABS: BASOPHILS 0 % (0-2); EOSINOPHILS 0.3 % (0-7); IMMATURE GRANULOCYTES 0.8 % (0-5); LYMPHOCYTES 16.7 % (15-50); MCH 29.1 pg (26.0-34.0); MCV 93.9 fL (80.0-100.0); MEAN PLATELET VOLUME 10.2 fL (7.4-10.4); MONOCYTES 10.2 % (2-11); RBC 3.09 10x6/uL (4.20-6.10); RDW 14.1 % (11.5-14.5); WBC 3.5 10x3/uL (4.8-10.8)
[2020-02-19 04:54] LABS: PLATELET COUNT 109 10x3/uL (130-400)
[2020-02-19 05:11] LABS: ALBUMIN 2.4 g/dL (3.4-5.0); ALKALINE PHOSPHATASE 68 U/L (30-120); BILIRUBIN - TOTAL 1.25 mg/dL (0.2-1.3); CALC OSMOLALITY 295 mosm/kg (275-300); CALCIUM 8.2 mg/dL (8.5-10.1); CARBON DIOXIDE 27.5 mmol/L (21.0-32.0); CHLORIDE - SERUM 112 mmol/L (98-107); CREATININE - SERUM 0.8 mg/dL (0.6-1.3); GLUCOSE 143 mg/dL (74-106); POTASSIUM - SERUM 3.9 mmol/L (3.5-5.1); PROTEIN - SERUM 5.5 g/dL (6.4-8.2); SODIUM 145 mmol/L (136-145); UREA NITROGEN 27 mg/dL (7-18); eGFR NON AFRICAN AMERICAN > 90 mL/min (90-120)
[2020-02-19 05:19] LABS: ALT (SGPT) 18 U/L (10-68); AMYLASE - SERUM 43 U/L (25-115); LIPASE 125 U/L (73-393)
--- NOTE | 2020-02-19 12:51 | NUR ---
Nutrition Follow-up: Extubated yesterday. Speech eval pending. Diet: NPO WT: 260.9# (02/17) Labs noted: Glu 143, Ca 8.2, Alb 2.4 Meds noted: Lactulose, Albumin, Humalog, Protonix, NS @ 150, electrolyte protocol -Rec ADAT to carb consistent diet pending speech eval. -RD following.
[2020-02-19 13:59] LABS: % SATURATION 20 % (15-55); IRON 24 ug/dl (35-150); TOTAL IRON BIND CAPACITY 118 ug/dl (260-445); UNSAT IRON BIND CAPACITY 94 ug/dl (150-375)
--- NOTE | 2020-02-20 03:43 | NUR ---
I have reviewed this patient and I concur with the Shift Assessment completed by the Licensed Practical Nurse today this shift.
[2020-02-20 04:00] VITALS: BP 153/76
--- NOTE | 2020-02-20 07:15 | NUR ---
RECEIVED BEDSIDE REPORT. PT LAYING IN BED, A&O X4. CVL TO RIGHT SUBCLAV, PATENT AND INFUSING. O2 SAT 98%, VIA 3L NC. REYNOLDS IN PLACE, DRAINING TO GRAVITY, STATLOCK IN PLACE, TRACEY COLORED URINE. ABD DISTENDED, GENERALIZED EDEMA ON BILAT EXTREMITIES, 2+ PITTING EDEMA ON BILAT HANDS. MEDIPLEX DRSG ON COCCYX, C/D/I. DROPLET ISOLATION IN PLACE. EDUCATED PT ON CL AND NEEDS, VERBALIZED UNDERSTANDING. BED LOW, RAILS X2. CL IN REACH. WILL CONTINUE TO MONITOR.
[2020-02-20 08:00] VITALS: BP 158/89
--- NOTE | 2020-02-20 11:15 | NUR ---
PT C/O PAIN 12/22, CONTACTED MARIA G BAILEY AND ORDERED PAIN MEDS. PROVIDED PT WITH MEDS. BED LOW, RAILS X2. CL IN REACH. WILL CONTINUE TO MONITOR.
[2020-02-20 11:38] LABS: BASOPHILS 0 % (0-2); EOSINOPHILS 0 % (0-7); HEMATOCRIT 29.5 % (42.0-54.0); HEMOGLOBIN 9.4 g/dL (13.5-17.5); IMMATURE GRANULOCYTES 1.8 % (0-5); LYMPHOCYTES 9.3 % (15-50); MCH 29.7 pg (26.0-34.0); MCHC 31.9 g/dL (31.0-37.0); MCV 93.1 fL (80.0-100.0); MEAN PLATELET VOLUME 9.7 fL (7.4-10.4); MONOCYTES 6.8 % (2-11); NEUTROPHILS 82.1 % (40-80); PLATELET COUNT 127 10x3/uL (130-400); RBC 3.17 10x6/uL (4.20-6.10); RDW 13.9 % (11.5-14.5)
[2020-02-20 11:39] LABS: WBC 4.4 10x3/uL (4.8-10.8)
[2020-02-20 11:56] VITALS: BP 160/90
[2020-02-20 12:03] LABS: CALC OSMOLALITY 295 mosm/kg (275-300); CALCIUM 8.1 mg/dL (8.5-10.1); CARBON DIOXIDE 26.3 mmol/L (21.0-32.0); CHLORIDE - SERUM 111 mmol/L (98-107); CREATININE - SERUM 0.8 mg/dL (0.6-1.3); GLUCOSE 184 mg/dL (74-106); POTASSIUM - SERUM 3.7 mmol/L (3.5-5.1); SODIUM 144 mmol/L (136-145); UREA NITROGEN 24 mg/dL (7-18); eGFR NON AFRICAN AMERICAN > 90 mL/min (90-120)
[2020-02-20 12:11] LABS: ALBUMIN 2.7 g/dL (3.4-5.0); ALKALINE PHOSPHATASE 67 U/L (30-120); ALT (SGPT) 16 U/L (10-68); BILIRUBIN - TOTAL 1.28 mg/dL (0.2-1.3); PROTEIN - SERUM 5.2 g/dL (6.4-8.2)
--- NOTE | 2020-02-20 12:30 | NUR ---
PERFORMED FULL LININ CHANGE, GOWN CHANGE, PT TOLERATED WELL. BED LOW, RAILS X2. CL IN REACH. WILL CONTINUE TO MONITOR.
--- NOTE | 2020-02-20 13:43 | NUR ---
CHANGED CVL DRESSING ON RIGHT SUB CLAV, MAINTAINED STERILITY, FLUSHES WELL, PT TOLERATED WELL. BED LOW, CL IN REACH. WILL CONTINUE TO MONITOR.
--- NOTE | 2020-02-20 14:10 | NUR ---
RECEIVED BEDSIDE REPORT. PT LAYING IN BED A&O X4. CVL TO RIGHT SUBCLAV, PATENT AND INFUSING. O2 SAT 98%, 3L VIA NC. REYNOLDS IN PLACE, DRAINING TO GRAVITY, STATLOCK IN PLACE, TRACEY COLORED URINE. ABD DISTENDED, GENERALIZED EDEMA ON BILAT EXTREMITIES. 2+ PITTING EDEMA ON BILAT HANDS. MEDIPLEX DRSG ON COCCYX, C/D/I. PT ON DROPLET ISOLATION. EDUCATED PT ON CL AND NEEDS, VERBALIZED UNDERSTANDING. BED LOW, RAILS X2. CL IN REACH, WILL CONTINUE TO MONITOR.
[2020-02-20 15:53] VITALS: BP 176/85
--- NOTE | 2020-02-20 16:01 | NUR ---
PT SPILLED DRINK ALL OVER BED. PERFORMED LININ CHANGE AND GOWN CHANGE, PT TOLERATED WELL. BED LOW, RAILS X2. CL IN REACH.
[2020-02-20 20:00] VITALS: BP 163/77
--- NOTE | 2020-02-20 20:00 | NUR ---
PATIENT RESTING IN BED WATCHING TV. NO S/S OF ACUTE DISTRESS. NO C/O AT THIS TIME. PATIENT IS ON DROPLET PRECAUTIONS. PATIENT IS ON 3L NASAL CANNULA AND WEARS A CPAP AT NIGHT. PATIENT HAS A RIGHT SUBCLAVIAN CENTRAL LINE, IV IS PATENT WTIH ALL LUMENS PATENT WITHOUT REDNESS, SWELLING, OR TENDERNESS. PATIENT HAS GENERALIZED EDEMA, +2 PITTING EDEMA ON EXTREMITIES. PATIENT ABDOMEN IS DISTENDED. PATIENT HAS A MEPILEX ON COCCYX. CALL LIGHT WITHIN REACH. WILL CONTINUE TO MONITOR.
[2020-02-21] VITALS: BP 178/86
--- NOTE | 2020-02-21 03:23 | NUR ---
I have reviewed this patient and I concur with the Shift Assessment completed by the Licensed Practical Nurse today this shift.
[2020-02-21 04:00] VITALS: BP 158/77
--- NOTE | 2020-02-21 06:50 | NUR ---
A&O RESTING IN BED WITH EYES OPEN. NO C/O PAIN. NO S/S OF ACUTE DISTRESS NOTED. ON DROPLET PRECAUTIONS. BEDREST. REYNOLDS CATHETER PRESENT, TEA COLORED URINE. FEEDER. BUE AND BLE EDEMA +3. ON 3L O2, NC. CRACKLES ASCULTATED BILATERAL LUNGS ALL LOBES. RIGHT SUBCLAVIAN, NS INFUSING @ 50ML/HR. SITE PATENT WITHOUT REDNES SWELLING. ABDOMEN DISTENDED. MEPILEX TO COCCYX AREA. DENIES ANY NEEDS AT THIS TIME CALL LIGHT IN REACH. WILL CONTINUE TO MONITOR.
[2020-02-21 08:00] VITALS: BP 180/90
[2020-02-21 12:00] VITALS: BP 163/86
--- NOTE | 2020-02-21 12:07 | NUR ---
OT NOTE: PT PERFORMED MUCH BETTER TODAAY. WITH ASSIST OF OT AND PT, PT WAS ABLE TO PERFORM SUPINE TO SIT WITH MOD/MAX ASSIST; EOB SITTING WITHOUT SUPPORT; PERFORMED SIT TO STAND WITH MOD ASSIST AND USE OF WALKER. PT WAS ABLE TO MAINTAIN STANDING X APPROX 3-4 MIN WHILE BED PADS WERE ADJUSTED AND PERINEAL CARE PERFORMED. PT WITH BM BUT WAS UNAWARE. ALLOWED PT SEVERAL MIN TO SIT AND REST, THEN ABLE TO STAND AND TAKE 2 SMALL SIDE STEPS. EDUCATED PT ON IMPORTANCE OF BED MOB FOR PRESSURE RELIEF AND ROM EXS TO ASSIST WITH EDEMA AND PREVENT FURTHER STIFFNESS IN JOINTS. PT EXHIBITED IMPROVED TRANSMISSION SPECIALIST STRENGTH IN R HAND TODAY. PT IS MOTIVATED AND WOULD BENEFIT FROM IP REHAB. CORINNE DE LA CRUZ, OTR/L [phone]
--- NOTE | 2020-02-21 12:26 | MORECARE ---
CASE MANAGEMENT DISCHARGE SUMMARY PATIENT: CANDIDO ESTEVEZ UNIT: [id number] ADM DATE: 02/03/20 AGE: 60 : 56 SEX: M ROOM/BED: D.2237 AUTHOR: IGNACIO,DOC PHYSICIAN: REFERRING PHYSICIAN: MAXINE NAYAK DO DATE OF SERVICE: 02/21/20 Discharge Plan Patient Name: CANDIDO ESTEVEZ Facility: [facility]:[place] : 1960 Planned Disposition: Home Anticipated Discharge Date: Discharge Date: Expected LOS: Initial Reviewer: [email or web address] Initial Review Date: 02/03/2020 Generated: 02/21/20 1:25 pm DCP- Discharge Planning Updated by [email or web address]: Joann Nice on 02/14/20 3:[address] Patient Name: CANDIDO ESTEVEZ Admission Status: ER Accout number: [id number] Admission Date: 02-03-2020 : 1960 Admission Diagnosis:ACUTE PANCREATITIS WITHOUT NECROSIS OR INFECTION, UNSP Attending: MAXINE NAYAK Current LOS: 11 Anticipated DC Date: Planned Disposition: Primary Insurance: [place] Discharge Planning Comments: CM met with patient's mother Macey to complete initial dc planning assessment. CM educated patient on the CM role and verbal consent given by patient to complete assessment. Patient lives at home with family. Patient is independent. At discharge patient plans to return home and feels this is a safe discharge. CM discussed availability of home health, rehab services, and medical equipment. Patient will have family to transport home. Patient denied known discharge needs at this time. CM will continue to follow and will assist as needed with dc plans/needs. Auto Mechanic Supervisor: Joann Nice DCP- Discharge Planning Updated by [email or web address]: Joann Nice on 02/14/20 11:[address] CM received a call from Vicki [employer] [place] bilingual patient support caseworker [phone]. checking on patient status. CM can call with discharge assistance. DCP- Discharge Planning Updated by [email or web address]: Joann Nice on 02/05/20 7:[address] CM attempted to personalized living manager nurse of contact Jaycob Lester [phone]. CM didn't get an answer. CM will continue to try to get discharge planning assessment completed. Patient is currently on vent and sedated. DCPIA - Discharge Planning Initial Assessment Updated by [email or web address]: Joann Nice on 02/14/20 4:40 pm * Is the patient Alert and Oriented? No * How many steps to enter\exit or inside your home? * PCP [facility] * Pharmacy [facility] * Preadmission Environment Home with Family * ADLs Independent * List name and contact numbers for known caregivers / representatives who currently or will assist patient after discharge: JAYCOB LESTER [facility] - [phone] * Verbal permission to speak to the caregivers and representatives has been obtained from the patient. Yes * Community resources currently utilized None * Additional services required to return to the preadmission environment? No * Can the patient safely return to the preadmission environment? Yes * Has this patient been hospitalized within the prior 30 days at any hospital? No External Providers External Provider: OTHER-OTHER Next Contact Date: Service Request Date: Service Type: Resolution: Reviewer: Comments: Last DP export: 02/14/20 3:43 p Patient Name: CANDIDO ESTEVEZ Page 58893 at 1226 All edits/amendments must be made on the electronic document DICTATION DATE: 02/21/201224 MRI TECHNOLOGIST: ALEXANDREA 02/21/201224 RPT#: [id number] DC DATE: STATUS: ADM IN [facility] [address] [place] [address] END OF REPORT
--- NOTE | 2020-02-21 13:06 | MORECARE ---
CASE MANAGEMENT DISCHARGE SUMMARY PATIENT: CANDIDO ESTEVEZ UNIT: [id number] ADM DATE: 02/03/20 AGE: 60 : 56 SEX: M ROOM/BED: D.2237 AUTHOR: IGNACIO,DOC PHYSICIAN: REFERRING PHYSICIAN: MAXINE NAYAK DO DATE OF SERVICE: 02/21/20 Discharge Plan Patient Name: CANDIDO ESTEVEZ Facility: [facility]:[place] : 1960 Planned Disposition: Home Anticipated Discharge Date: Discharge Date: Expected LOS: Initial Reviewer: [email or web address] Initial Review Date: 02/03/2020 Generated: 02/21/20 2:05 pm DCP- Discharge Planning Updated by [email or web address]: Joann Nice on 02/14/20 3:[address] Patient Name: CANDIDO ESTEVEZ Admission Status: ER Accout number: [id number] Admission Date: 02-03-2020 : 1960 Admission Diagnosis:ACUTE PANCREATITIS WITHOUT NECROSIS OR INFECTION, UNSP Attending: MAXINE NAYAK Current LOS: 11 Anticipated DC Date: Planned Disposition: Primary Insurance: [place] Discharge Planning Comments: CM met with patient's mother Macey to complete initial dc planning assessment. CM educated patient on the CM role and verbal consent given by patient to complete assessment. Patient lives at home with family. Patient is independent. At discharge patient plans to return home and feels this is a safe discharge. CM discussed availability of home health, rehab services, and medical equipment. Patient will have family to transport home. Patient denied known discharge needs at this time. CM will continue to follow and will assist as needed with dc plans/needs. Cutting Inspector: Joann Nice DCP- Discharge Planning Updated by [email or web address]: Joann Nice on 02/14/20 11:[address] CM received a call from Vicki [employer] [place] caser shoe parts [phone]. checking on patient status. CM can call with discharge assistance. DCP- Discharge Planning Updated by [email or web address]: Joann Nice on 02/05/20 7:[address] CM attempted to optical effects layout person of contact Jaycob Lester [phone]. CM didn't get an answer. CM will continue to try to get discharge planning assessment completed. Patient is currently on vent and sedated. DCPIA - Discharge Planning Initial Assessment Updated by [email or web address]: Joann Nice on 02/14/20 4:40 pm * Is the patient Alert and Oriented? No * How many steps to enter\exit or inside your home? * PCP [facility] * Pharmacy [facility] * Preadmission Environment Home with Family * ADLs Independent * List name and contact numbers for known caregivers / representatives who currently or will assist patient after discharge: JAYCOB FELISA [facility] - [phone] * Verbal permission to speak to the caregivers and representatives has been obtained from the patient. Yes * Community resources currently utilized None * Additional services required to return to the preadmission environment? No * Can the patient safely return to the preadmission environment? Yes * Has this patient been hospitalized within the prior 30 days at any hospital? No External Providers External Provider: OTHER-OTHER Next Contact Date: Service Request Date: Service Type: Resolution: Reviewer: Comments: Last DP export: 02/21/20 11:26 a Patient Name: CANDIDO ESTEVEZ Page 49317 at 1306 All edits/amendments must be made on the electronic document DICTATION DATE: 02/21/20 130 WATER TREATMENT TECHNICIAN: ALEXANDREA 02/21/20 1305 RPT#: [id number] DC DATE: STATUS: ADM IN [facility] [address] [place] [address] END OF REPORT
--- NOTE | 2020-02-21 13:16 | MORECARE ---
CASE MANAGEMENT DISCHARGE SUMMARY PATIENT: CANDIDO ESTEVEZ UNIT: [id number] ADM DATE: 02/03/20 AGE: 60 : 56 SEX: M ROOM/BED: D.2237 AUTHOR: IGNACIO,DOC PHYSICIAN: REFERRING PHYSICIAN: MAXINE NAYAK DO DATE OF SERVICE: 02/21/20 Discharge Plan Patient Name: CANDIDO ESTEVEZ Facility: [facility]:[place] : 1960 Planned Disposition: Home Anticipated Discharge Date: Discharge Date: Expected LOS: Initial Reviewer: [email or web address] Initial Review Date: 02/03/2020 Generated: 02/21/20 2:16 pm Comments DCP- Discharge Planning Updated by [id number]: Zoya Figueredo on 02/21/20 12:[address] Patient Name: CANDIDO ESTEVEZ Admission Status: ER Accout number: [id number] Admission Date: 02-03-2020 : 1960 Admission Diagnosis:ACUTE PANCREATITIS WITHOUT NECROSIS OR INFECTION, UNSP Attending: MAXINE NAYAK Current LOS: 18 Anticipated DC Date: Planned Disposition: Home Primary Insurance: [place] Discharge Planning Comments: CM SPOKE WITH GARRICK AT THE [place] AND RECOMENDS [facility]. I HAVE FAXED THE OT AND PT EVALS TO EDEN SARMIENTO APN AT THE [place] FOR APPROVAL OF [facility]. WAITING CALL BACK. Set Up Inspector: Zoya Figueredo DCP- Discharge Planning Updated by [email or web address]: Joann Nice on 02/14/20 3:[address] Patient Name: CANDIDO ESTEVEZ Admission Status: ER Accout number: [id number] Admission Date: 02-03-2020 : 1960 Admission Diagnosis:ACUTE PANCREATITIS WITHOUT NECROSIS OR INFECTION, UNSP Attending: MAXINE NAYAK Current LOS: 11 Anticipated DC Date: Planned Disposition: Primary Insurance: [place] Discharge Planning Comments: CM met with patient's mother Macey to complete initial dc planning assessment. CM educated patient on the CM role and verbal consent given by patient to complete assessment. Patient lives at home with family. Patient is independent. At discharge patient plans to return home and feels this is a safe discharge. CM discussed availability of home health, rehab services, and medical equipment. Patient will have family to transport home. Patient denied known discharge needs at this time. CM will continue to follow and will assist as needed with dc plans/needs. Set Up Inspector: Joann Nice DCP- Discharge Planning Updated by [email or web address]: Joann Nice on 02/14/20 11:[address] CM received a call from Garrick [facility] caser shoe parts [phone]. checking on patient status. CM can call with discharge assistance. DCP- Discharge Planning Updated by [email or web address]: Joann Nice on 02/05/20 7:[address] CM attempted to pets and pet supplies salesperson of contact Jaycob Lester [phone]. CM didn't get an answer. CM will continue to try to get discharge planning assessment completed. Patient is currently on vent and sedated. DCPIA - Discharge Planning Initial Assessment Updated by [id number]: Joann Nice on 02/14/20 4:40 pm * Is the patient Alert and Oriented? No * How many steps to enter\exit or inside your home? * [place]CP [place] * Pharmacy [place] * Preadmission Environment Home with Family * ADLs Independent * List name and contact numbers for known caregivers / representatives who currently or will assist patient after discharge: JAYCOB LESTER [facility] [phone] * Verbal permission to speak to the caregivers and representatives has been obtained from the patient. Yes * Community resources currently utilized None * Additional services required to return to the preadmission environment? No * Can the patient safely return to the preadmission environment? Yes * Has this patient been hospitalized within the prior 30 days at any hospital? No Last DP export: 02/21/20 12:06 p Patient Name: CANDIDO ESTEVEZ Page 40772 at 1316 All edits/amendments must be made on the electronic document DICTATION DATE: 02/21/20 1316 TRAVELING PASSENGER AGENT: ALEXANDREA 02/21/20 131 RPT#: [id number] DC DATE: STATUS: ADM IN [facility] [address] [place] [address] END OF REPORT
[2020-02-21 15:15] LABS: BASOPHILS 0 % (0-2); EOSINOPHILS 0.5 % (0-7); HEMATOCRIT 30.6 % (42.0-54.0); HEMOGLOBIN 9.8 g/dL (13.5-17.5); IMMATURE GRANULOCYTES 1.4 % (0-5); LYMPHOCYTES 11.6 % (15-50); MCH 29.7 pg (26.0-34.0); MCV 92.7 fL (80.0-100.0); MEAN PLATELET VOLUME 9.7 fL (7.4-10.4); MONOCYTES 8.5 % (2-11); PLATELET COUNT 140 10x3/uL (130-400); RDW 14.2 % (11.5-14.5); WBC 4.2 10x3/uL (4.8-10.8)
--- NOTE | 2020-02-21 16:03 | NUR ---
Rehab Note- Acute Inpatient Rehab precreen order received. The patient has VA benefits and HAZEL Kenny is communicating with the VA to get approval to stay here and use his VA benefits for [facility] Acute Inpatient Rehab will await at this time for approval. Will follow. Thank you for this referral! Stephanie Frye RN Clinical Liaison, [facility] Rehab
[2020-02-21 16:10] LABS: ALBUMIN 2.8 g/dL (3.4-5.0); ALKALINE PHOSPHATASE 64 U/L (30-120); BILIRUBIN - TOTAL 1.36 mg/dL (0.2-1.3); CALC OSMOLALITY 289 mosm/kg (275-300); CALCIUM 8.1 mg/dL (8.5-10.1); CARBON DIOXIDE 26.1 mmol/L (21.0-32.0); CHLORIDE - SERUM 110 mmol/L (98-107); CREATININE - SERUM 0.8 mg/dL (0.6-1.3); GLUCOSE 152 mg/dL (74-106); POTASSIUM - SERUM 3.8 mmol/L (3.5-5.1); PROTEIN - SERUM 5.3 g/dL (6.4-8.2); SODIUM 142 mmol/L (136-145); UREA NITROGEN 24 mg/dL (7-18); eGFR NON AFRICAN AMERICAN > 90 mL/min (90-120)
[2020-02-21 16:11] LABS: ALT (SGPT) 28 U/L (10-68)
[2020-02-21 16:59] VITALS: BP 171/83
[2020-02-21 17:09] LABS: FUNGUS CULTURE RESULT 1 Candida albicans (())
--- NOTE | 2020-02-21 17:56 | NUR ---
I have reviewed this patient and I concur with the Shift Assessment completed by the Licensed Practical Nurse today this shift.
--- NOTE | 2020-02-21 18:20 | NUR ---
REMOVED CVL. FULLY INTACT. TOLERATED WELL. DENIES PAIN AT THIS TIME. APPLIED GAUZE AND TEGADERM TO SITE. CONTINUING TO MONITOR
--- NOTE | 2020-02-21 20:00 | NUR ---
PATIENT RESTING IN BED WATCHING TV. NO S/S OF ACUTE DISTRESS. NO C/O AT THIS TIME. PATIENT IS ON 3L OF O2 NASAL CANNULA. PATIENT HAS A 20G IV IN UPPER ABDOMEN, NORMAL SALINE @ 50 ML/HR. IV IS PATENT WITHOUT REDNESS, SWELLING, OR TENDERNESS. PATIENT HAS +2 TO +3, OF ALL EXTREMITIES. PATIENT HAS REYNOLDS. CALL LIGHT WITHIN REACH. WILL CONTINUE TO MONITOR.
[2020-02-21 21:40] VITALS: BP 146/74
[2020-02-22 05:36] VITALS: BP 159/79
--- NOTE | 2020-02-22 08:35 | NUR ---
PT ALERT AND ORIENTED UPON ENTERING. ADMINISTERED MEDICATIONS WITH NO DIFFICULTY. ASSESSED BLOOD SUGAR, NO INSULIN PER SLIDING SCALE, SUGAR 124. PERFORMED EKG 3/3 AT THIS TIME, NORMAL SINUS RYTHM NOTED. DENIES ANY NEEDS. RESTING COMFORTABLY IN BED. BED IN LOWEST POSITION, BED RAILS X2, CALL LIGHT WITHIN REACH. WILL CONTINUE TO MONITOR.
[2020-02-22 09:21] VITALS: BP 143/74
--- NOTE | 2020-02-22 10:06 | NUR ---
ADMINISTERED PRN NORCO FOR PAIN 12/22, GENERALIZED. DENIES ANY OTHER NEEDS AT THIS TIME. HUNG ALBUMIN, TOLERATING WELL. DENIES ANY NEEDS. BED IN LOWEST POSITON, BED RAILS X2, CALL LIGHT WITHIN REACH. WILL CONTINUE TO MONITOR.
[2020-02-22 10:37] LABS: BASOPHILS 0 % (0-2); EOSINOPHILS 1.4 % (0-7); HEMATOCRIT 31.6 % (42.0-54.0); HEMOGLOBIN 10.2 g/dL (13.5-17.5); IMMATURE GRANULOCYTES 0.8 % (0-5); LYMPHOCYTES 21.1 % (15-50); MCH 29.7 pg (26.0-34.0); MCHC 32.3 g/dL (31.0-37.0); MCV 91.9 fL (80.0-100.0); MEAN PLATELET VOLUME 9.4 fL (7.4-10.4); MONOCYTES 6.9 % (2-11); NEUTROPHILS 69.8 % (40-80); PLATELET COUNT 129 10x3/uL (130-400); RBC 3.44 10x6/uL (4.20-6.10); RDW 14.3 % (11.5-14.5); WBC 3.6 10x3/uL (4.8-10.8)
[2020-02-22 11:10] LABS: ALBUMIN 2.7 g/dL (3.4-5.0); ALKALINE PHOSPHATASE 66 U/L (30-120); BILIRUBIN - TOTAL 1.56 mg/dL (0.2-1.3); CALC OSMOLALITY 282 mosm/kg (275-300); CALCIUM 7.7 mg/dL (8.5-10.1); CARBON DIOXIDE 28.6 mmol/L (21.0-32.0); CHLORIDE - SERUM 107 mmol/L (98-107); CREATININE - SERUM 0.8 mg/dL (0.6-1.3); GLUCOSE 129 mg/dL (74-106); PROTEIN - SERUM 4.9 g/dL (6.4-8.2); SODIUM 140 mmol/L (136-145); UREA NITROGEN 18 mg/dL (7-18); eGFR NON AFRICAN AMERICAN > 90 mL/min (90-120)
[2020-02-22 11:11] LABS: ALT (SGPT) 39 U/L (10-68); POTASSIUM - SERUM 3.2 mmol/L (3.5-5.1)
--- NOTE | 2020-02-22 14:12 | NUR ---
PT RESTING COMFORTABLY IN BED UPON ENTERING. ADMINISTERED MEDICATION, NO DIFFICULTIES/TOLERATED WELL. ASSESSD BLOOD SUGAR, 119. NO INSULIN PER SLIDING SCALE. WILL PROVIDE WATER PER REQUEST. DENIES ANY OTHER NEEDS. BED IN LOWEST POSITION, BED RAILS X2, CALL LIGHT WITHIN REACH. WILL CONTINUE TO MONITOR.
[2020-02-22 14:25] VITALS: BP 137/69
[2020-02-22 17:14] VITALS: BP 156/80
--- NOTE | 2020-02-22 17:42 | NUR ---
SPOKE TO DR. LAI ON THE PHONE CONCERING LASIX ORDER FOR PATIENT. INSTRUCTED TO ORDER 40MG 1 TIME DOSE.
--- NOTE | 2020-02-22 18:41 | NUR ---
ADMINISTERED ONE TIME DOSE OF LASIX 40MG PER DR. LAI ORDER. RESTING COMFORTABLY IN BED. DENIES ANY NEEDS. WILL CONTINUE TO MONITOR.
--- NOTE | 2020-02-22 18:45 | NUR ---
I have reviewed this patient and I concur with the Shift Assessment completed by the Licensed Practical Nurse today this shift.
--- NOTE | 2020-02-22 19:15 | NUR ---
PATIENT RESTING IN BED WITH NO S/S OF DISTRESS. ASSISTED CONSERVATION WORKER REPOSITION PATIENT IN BED. PATIENT DENIES OTHER NEEDS AT THIS TIME. BED IN LOWEST POSITION AND CALL LIGHT WITHIN REACH. ENCOURAGED THE PATIENT TO CALL IF HE HAS NEEDS. WILL CONTINUE TO MONITOR.
[2020-02-22 20:33] VITALS: BP 164/82
[2020-02-23 01:05] VITALS: BP 183/76
[2020-02-23 05:11] VITALS: BP 172/82
[2020-02-23 05:55] LABS: BASOPHILS 0 % (0-2); EOSINOPHILS 1.2 % (0-7); HEMATOCRIT 29.9 % (42.0-54.0); HEMOGLOBIN 9.6 g/dL (13.5-17.5); IMMATURE GRANULOCYTES 0.3 % (0-5); LYMPHOCYTES 20.5 % (15-50); MCH 29.1 pg (26.0-34.0); MCHC 32.1 g/dL (31.0-37.0); MCV 90.6 fL (80.0-100.0); MEAN PLATELET VOLUME 9.4 fL (7.4-10.4); MONOCYTES 4.4 % (2-11); NEUTROPHILS 73.6 % (40-80); PLATELET COUNT 124 10x3/uL (130-400); RDW 14.3 % (11.5-14.5); WBC 3.4 10x3/uL (4.8-10.8)
[2020-02-23 06:23] LABS: ALBUMIN 2.8 g/dL (3.4-5.0); ALKALINE PHOSPHATASE 58 U/L (30-120); BILIRUBIN - TOTAL 1.44 mg/dL (0.2-1.3); CALC OSMOLALITY 284 mosm/kg (275-300); CALCIUM 7.8 mg/dL (8.5-10.1); CARBON DIOXIDE 30.2 mmol/L (21.0-32.0); CHLORIDE - SERUM 105 mmol/L (98-107); CREATININE - SERUM 0.9 mg/dL (0.6-1.3); GLUCOSE 147 mg/dL (74-106); PROTEIN - SERUM 5.1 g/dL (6.4-8.2); SODIUM 141 mmol/L (136-145); UREA NITROGEN 16 mg/dL (7-18); eGFR NON AFRICAN AMERICAN > 90 mL/min (90-120)
[2020-02-23 06:26] LABS: ALT (SGPT) 27 U/L (10-68); POTASSIUM - SERUM 2.7 mmol/L (3.5-5.1)
[2020-02-23 08:00] VITALS: BP 144/72
--- NOTE | 2020-02-23 09:50 | NUR ---
PT LAYING IN BED WATCHING TV. NO ACTE DISRESS NOTED. HE HAS BEEN REPOSITIONED TWICE THIS MORNING. DENIES PAIN AT THIS TIME. BED IN LOWEST POSITION, LOCKED, SIDE RAILS UP X2. CALL LIGHT WITHIN REACH. NEEDS ANTICIPATED AND MET. WILL CONTINUE TO MONITOR
[2020-02-23 12:00] VITALS: BP 111/69
[2020-02-23 16:43] VITALS: BP 164/76
--- NOTE | 2020-02-23 19:30 | NUR ---
ASSISTED PATIENT REPOSITIONING IN BED WITH OXYACETYLENE CUTTER. PATIENT DENIES OTHER NEEDS. BED IN LOWEST POSITION AND CALL LIGHT WITHIN REACH. ENCOURAGED THE PATIENT TO CALL IF HE HAS NEEDS. WILL CONTINUE TO MONITOR.
--- NOTE | 2020-02-23 20:10 | NUR ---
ADMINISTERED MEDS PER ORDERS. DENIES OTHER NEEDS. WILL CONTINUE TO MONITOR.
[2020-02-23 20:42] VITALS: BP 178/74
--- NOTE | 2020-02-23 21:53 | NUR ---
PT REFUSED TO WEAR BIPAP
[2020-02-24 01:24] VITALS: BP 182/72
[2020-02-24 06:23] VITALS: BP 194/79
[2020-02-24 06:25] LABS: BASOPHILS 0 % (0-2); EOSINOPHILS 0.8 % (0-7); HEMATOCRIT 30.4 % (42.0-54.0); IMMATURE GRANULOCYTES 0.3 % (0-5); LYMPHOCYTES 17.4 % (15-50); MCH 30.4 pg (26.0-34.0); MCHC 32.9 g/dL (31.0-37.0); MCV 92.4 fL (80.0-100.0); MONOCYTES 5.9 % (2-11); NEUTROPHILS 75.6 % (40-80); PLATELET COUNT 119 10x3/uL (130-400); RBC 3.29 10x6/uL (4.20-6.10); RDW 14.8 % (11.5-14.5); WBC 3.6 10x3/uL (4.8-10.8)
[2020-02-24 07:03] LABS: ALKALINE PHOSPHATASE 57 U/L (30-120); ALT (SGPT) 26 U/L (10-68); BILIRUBIN - TOTAL 1.53 mg/dL (0.2-1.3); CALC OSMOLALITY 281 mosm/kg (275-300); CHLORIDE - SERUM 106 mmol/L (98-107); GLUCOSE 113 mg/dL (74-106); POTASSIUM - SERUM 3.1 mmol/L (3.5-5.1); PROTEIN - SERUM 5.3 g/dL (6.4-8.2); SODIUM 141 mmol/L (136-145); UREA NITROGEN 13 mg/dL (7-18)
[2020-02-24 07:04] LABS: CREATININE - SERUM 0.6 mg/dL (0.6-1.3); eGFR NON AFRICAN AMERICAN > 90 mL/min (90-120)
[2020-02-24 08:00] VITALS: BP 176/79
[2020-02-24 12:20] VITALS: BP 152/84
--- NOTE | 2020-02-24 14:38 | NUR ---
OT NOTE: PT PERFORMED WELL TODAY. BED MOB WITH MOD ASSIST; EOB SITTING WITH GOOD BALANCE. UE/LE AROM EXS WHILE SITTING ON EOB. PERFORMED SEVERAL SIT TO STAND ACT TO IMPROVE STRENGTH..ABLE TO TAKE SEVERAL SIDE STEPS WITH WALKER AND MOD ASSIST. CONT TO C/O DIZZINESS WHEN SITTING AND STANDING. PT ABLE TO WASH FACE AND HANDS WITH CLOTH AND SET UP..FEEDING WITH SET UP; ABLE TO GAGANDEEP GOWN WITH MIN ASSIST; MAX ASSIST TO GAGANDEEP SOCKS AND PERFORM PERINEAL CARE. CORINNE DE LA CRUZ, OTR/L [phone]
[2020-02-24 16:00] VITALS: BP 177/75
--- NOTE | 2020-02-24 19:30 | NUR ---
PATIENT RESTING IN BED WITH NO S/S OF DISTRESS AND DENIES NEEDS AT THIS TIME. BED IN LOWEST POSITION AND CALL LIGHT WITHIN REACH. ENCOURAGED THE PATIENT TO CALL IF HE HAS NEEDS. WILL CONTINUE TO MONITOR.
--- NOTE | 2020-02-24 19:48 | NUR ---
OT NOTE: PT COMPLETED BUE AROM EXS TOLERATED. PT ATTEMPTED SIDE ROLLING. PT REQUIRED MAX A. PT COMPLETED UB HYGIENE TASKS WITH SETUP. PT EXHIBITED INCREASED MOTIVATION. [phone] ELLIE TOLENTINO COTA
[2020-02-24 20:00] VITALS: BP 162/77
--- NOTE | 2020-02-24 20:09 | NUR ---
ADMINISTERED MEDS PER ORDERS. PATIENT DENIES NEEDS. WILL CONTINUE TO MONITOR.
--- NOTE | 2020-02-24 23:41 | NUR ---
PT REFUSED TO WEAR BIPAP
[2020-02-25 04:00] VITALS: BP 120/78; BP 192/84
[2020-02-25 06:25] LABS: BASOPHILS 0.3 % (0-2); EOSINOPHILS 0.9 % (0-7); HEMATOCRIT 30.9 % (42.0-54.0); HEMOGLOBIN 9.7 g/dL (13.5-17.5); IMMATURE GRANULOCYTES 0.3 % (0-5); LYMPHOCYTES 19.6 % (15-50); MCH 29.2 pg (26.0-34.0); MCHC 31.4 g/dL (31.0-37.0); MCV 93.1 fL (80.0-100.0); MEAN PLATELET VOLUME 9.3 fL (7.4-10.4); MONOCYTES 3.7 % (2-11); NEUTROPHILS 75.2 % (40-80); PLATELET COUNT 114 10x3/uL (130-400); RBC 3.32 10x6/uL (4.20-6.10); RDW 15.2 % (11.5-14.5); WBC 3.3 10x3/uL (4.8-10.8)
[2020-02-25 07:08] LABS: ALBUMIN 3.3 g/dL (3.4-5.0); ALKALINE PHOSPHATASE 56 U/L (30-120); ALT (SGPT) 22 U/L (10-68); BILIRUBIN - TOTAL 1.25 mg/dL (0.2-1.3); CALC OSMOLALITY 282 mosm/kg (275-300); CALCIUM 7.9 mg/dL (8.5-10.1); CARBON DIOXIDE 28.4 mmol/L (21.0-32.0); CHLORIDE - SERUM 106 mmol/L (98-107); CREATININE - SERUM 0.6 mg/dL (0.6-1.3); GLUCOSE 114 mg/dL (74-106); POTASSIUM - SERUM 3.4 mmol/L (3.5-5.1); PROTEIN - SERUM 5.1 g/dL (6.4-8.2); SODIUM 142 mmol/L (136-145); UREA NITROGEN 11 mg/dL (7-18); eGFR NON AFRICAN AMERICAN > 90 mL/min (90-120)
--- NOTE | 2020-02-25 08:50 | MORECARE ---
CASE MANAGEMENT DISCHARGE SUMMARY PATIENT: CANDIDO ESTEVEZ UNIT: [id number] ADM DATE: 02/03/20 AGE: 60 : 56 SEX: M ROOM/BED: D.2237 AUTHOR: IGNACIO,DOC PHYSICIAN: REFERRING PHYSICIAN: MAXINE NAYAK DO DATE OF SERVICE: 02/25/20 Discharge Plan Patient Name: CANDIDO ESTEVEZ Facility: [facility]:[place] : 1960 Planned Disposition: Home Anticipated Discharge Date: Discharge Date: Expected LOS: Initial Reviewer: [email or web address] Initial Review Date: 02/03/2020 Generated: 02/25/20 9:49 am DCP- Discharge Planning Updated by [email or web address]: Zoya Figueredo on 02/21/20 12:[address] Patient Name: CANDIDO ESTEVEZ Admission Status: ER Accout number: [id number] Admission Date: 02-03-2020 : 1960 Admission Diagnosis:ACUTE PANCREATITIS WITHOUT NECROSIS OR INFECTION, UNSP Attending: MAXINE NAYAK Current LOS: 18 Anticipated DC Date: Planned Disposition: Home Primary Insurance: [place] Discharge Planning Comments: CM SPO[place] WITH GARRICK AT THE [place] AND RECOMEN[place] [facility]. I HAVE FAXED THE OT AND PT EVALS TO EDEN SARMIENTO [employer] AT THE [place] FOR [place] [facility]. WAITING CALL BACK. Hook And Eye Machine Operator: Zoya Figueredo DCP- Discharge Planning Updated by [email or web address]: Joann Nice on 02/14/20 3:[address] Patient Name: CANDIDO ESTEVEZ Admission Status: ER Accout number: [id number] Admission Date: 02-03-2020 : 1960 Admission Diagnosis:ACUTE PANCREATITIS WITHOUT NECROSIS OR INFECTION, UNSP Attending: MAXINE NAYAK Current LOS: 11 Anticipated DC Date: Planned Disposition: Primary Insurance: [place] Discharge Planning Comments: CM met with patient's mother Macey to complete initial dc planning assessment. CM educated patient on the CM role and verbal consent given by patient to complete assessment. Patient lives at home with family. Patient is independent. At discharge patient plans to return home and feels this is a safe discharge. CM discussed availability of home health, rehab services, and medical equipment. Patient will have family to transport home. Patient denied known discharge needs at this time. CM will continue to follow and will assist as needed with dc plans/needs. Hook And Eye Machine Operator: Joann Nice DCP- Discharge Planning Updated by [email or web address]: Joann Nice on 02/14/20 11:[address] CM received a call from Garrick [facility] disability case manager [phone]. checking on patient status. CM can call with discharge assistance. DCP- Discharge Planning Updated by [email or web address]: Joann Nice on 02/05/20 7:[address] CM attempted to personal injury specialist of contact Jaycob Lester [phone]. CM didn't get an answer. CM will continue to try to get discharge planning assessment completed. Patient is currently on vent and sedated. DCPIA - Discharge Planning Initial Assessment Updated by [id number]: Joann Nice on 02/14/20 4:40 pm * Is the patient Alert and Oriented? No * How many steps to enter\exit or inside your home? * [place]CP [place] * [place] * Preadmission Environment Home with Family * ADLs Independent * List name and contact numbers for known caregivers / representatives who currently or will assist patient after discharge: JAYCOB LESTER [facility] [phone] * Verbal permission to speak to the caregivers and representatives has been obtained from the patient. Yes * Community resources currently utilized None * Additional services required to return to the preadmission environment? No * Can the patient safely return to the preadmission environment? Yes * Has this patient been hospitalized within the prior 30 days at any hospital? No External Providers External Provider: OTHER-OTHER Next Contact Date: Service Request Date: Service Type: Resolution: Reviewer: Comments: Last DP export: 02/21/20 12:16 p Patient Name: CANDIDO ESTEVEZ Page 75908 at 0850 All edits/amendments must be made on the electronic document DICTATION DATE: 02/25/20848 NUCLEAR STATION OPERATOR: ALEXANDREA 02/25/20848 RPT#: [id number] DC DATE: STATUS: ADM IN [facility] [address] [place] [address] END OF REPORT
--- NOTE | 2020-02-25 08:58 | MORECARE ---
CASE MANAGEMENT DISCHARGE SUMMARY PATIENT: CANDIDO ESTEVEZ UNIT: [id number] ADM DATE: 02/03/20 AGE: 60 : 56 SEX: M ROOM/BED: D.2237 AUTHOR: RUPERTO PIERRE PHYSICIAN: REFERRING PHYSICIAN: MAXINE NAYAK DO DATE OF SERVICE: 02/25/20 Discharge Plan Patient Name: CANDIDO ESTEVEZ Facility: [facility]:[place] : 1960 Planned Disposition: Home Anticipated Discharge Date: Discharge Date: Expected LOS: Initial Reviewer: [email or web address] Initial Review Date: 02/03/2020 Generated: 02/25/20 9:58 am Comments DCP- Discharge Planning Updated by [email or web address]: Zoya Figueredo on 02/25/20 7:[address] Patient Name: CANDIDO ESTEVEZ Admission Status: ER Accout number: [id number] Admission Date: 02-03-2020 : 1960 Admission Diagnosis:ACUTE PANCREATITIS WITHOUT NECROSIS OR INFECTION, UNSP Attending: MAXINE NAYAK Current LOS: 22 Anticipated DC Date: Planned Disposition: Home Primary Insurance: [place] Discharge Planning Comments: RECEIVED CALL FROM EDEN SARMIENTO APN AT THE [place], SHE GAVE ME HER FAX NUMBER [phone]. I HAVE FAXED HER INFORMATION FOR THIS PATIENT TO BE APPROVED FOR [facility]. WAITING HER CALL BACK TO SEE IF THE [facility] WILL APPR[facility] HIM FOR OUR INPATIENT REHAB. Community Case Manager: Zoya Figueredo DCP- Discharge Planning Updated by [id number]: Zoya Figueredo on 02/21/20 12:[address] Patient Name: CANDIDO ESTEVEZ Admission Status: ER Accout number: [id number] Admission Date: 02-03-2020 : 1960 Admission Diagnosis:ACUTE PANCREATITIS WITHOUT NECROSIS OR INFECTION, UNSP Attending: MAXINE NAYAK Current LOS: 18 Anticipated DC Date: Planned Disposition: Home Primary Insurance: [place] Discharge Planning Comments: CM SPOKE WITH GARRICK AT THE [place] AND RECOMENDS [facility]. I HAVE FAXED THE OT AND PT EVALS TO EDEN SARMIENTO APN AT THE [place] FOR APPROVAL OF [facility]. WAITING CALL BACK. Community Case Manager: Zoya Figueredo DCP- Discharge Planning Updated by [email or web address]: Joann Nice on 02/14/20 3:[address] Patient Name: CANDIDO ESTEVEZ Admission Status: ER Accout number: [id number] Admission Date: 02-03-2020 : 1960 Admission Diagnosis:ACUTE PANCREATITIS WITHOUT NECROSIS OR INFECTION, UNSP Attending: MAXINE NAYAK Current LOS: 11 Anticipated DC Date: Planned Disposition: Primary Insurance: [facility] Discharge Planning Comments: CM met with patient's mother Macey to complete initial dc planning assessment. CM educated patient on the CM role and verbal consent given by patient to complete assessment. Patient lives at home with family. Patient is independent. At discharge patient plans to return home and feels this is a safe discharge. CM discussed availability of home health, rehab services, and medical equipment. Patient will have family to transport home. Patient denied known discharge needs at this time. CM will continue to follow and will assist as needed with dc plans/needs. Community Case Manager: Joann Nice DCP- Discharge Planning Updated by [id number]: Joann Nice on 02/14/20 11:[address] CM received a call from Garrick [employer] [place] caseworker intake [phone]. checking on patient status. CM can call with discharge assistance. DCP- Discharge Planning Updated by [email or web address]: Joann Nice on 02/05/20 7:[address] CM attempted to contact acid plant operator of contact Jaycob Tayler [phone]. CM didn't get an answer. CM will continue to try to get discharge planning assessment completed. Patient is currently on vent and sedated. DCPIA - Discharge Planning Initial Assessment Updated by [id number]: Joann Nice on 02/14/20 4:40 pm * Is the patient Alert and Oriented? No * How many steps to enter\exit or inside your home? * [place]CP [place] * Pharmacy [place] * Preadmission Environment Home with Family * ADLs Independent * List name and contact numbers for known caregivers / representatives who currently or will assist patient after discharge: JAYCOB ROBERTO [facility] - [phone] * Verbal permission to speak to the caregivers and representatives has been obtained from the patient. Yes * Community resources currently utilized None * Additional services required to return to the preadmission environment? No * Can the patient safely return to the preadmission environment? Yes * Has this patient been hospitalized within the prior 30 days at any hospital? No Last DP export: 02/25/20 7:50 Patient Name: CANDIDO ESTEVEZ Page 26976 at 0858 All edits/amendments must be made on the electronic document DICTATION DATE: 02/25/20857 AUDIOVISUAL PRODUCTION SPECIALIST: ALEXANDREA 02/25/20857 RPT#: [id number] DC DATE: STATUS: ADM IN [facility] [address] [place] [address] END OF REPORT
--- NOTE | 2020-02-25 14:52 | NUR ---
OT NOTE: PT DOING BETTER TODAY. BED MOB WITH MIN ASSIST; PERFORMED SEVERAL SIT TO STAND EXS WITH MIN ASSIST AND USE OF WALKER; STANDING TOLERANCE X APPROX 2 MIN. BED MOB TO INCLUDE ROLLING FROM SIDE TO SIDE WITH MIN ASSIST; SET UP TO WASH FACE, HANDS, ARMS WITH WASHCLOTH; EXTENSIVE ASSIST WITH PERINEAL CARE. NURSING IN TO APPLY MOISTURE BARRIER AND BANDAGE. TRANSFERS WITH WALKER AND MIN ASSIST; TOLERATED UP IN CHAIR APPROX 1+ HRS TODAY. CORINNE DE LA CRUZ, OTR/L [phone]
--- NOTE | 2020-02-25 15:26 | NUR ---
Nutrition Follow-up: Diet: Diabetic [place] Thick Liquids; Mech Soft/Ground Meat Swallow Precautions PO intake: 25-75% Last BM: 02/22/20. Wt: 261# (02/23/20); Admit Wt: 241# (02/03/20) Meds noted: lactulose, SSI, probiotics Labs noted: K 3.4(L), Glu 114(H), POC Glu 142(H), Alb 3.3(L) Recommend continue PO diet per COMPUTER ARTIST recommendations. Will add Glucerna TID with meals. RD following.
--- NOTE | 2020-02-25 16:00 | NUR ---
Pt has a stage 3 pressure injury on sacrum that measures 3cm x 1.5cm x 0.6cm. Wound edges appear macerated. Wound bed is pink with iverson tissue. Recommended Plurogel be applied to wound daily. Both buttocks are excoriated/peeling/red/blanchable. Zinc paste is being applied. Pt is able to turn/reposition himself in bed and demonstrated the ability to do so. Encouraged frequent (at least every 2 hour) position changes while in bed. He voiced his understanding. Wound care will continue monitoring.
[2020-02-25 17:48] VITALS: BP 102/50
--- NOTE | 2020-02-25 17:52 | NUR ---
OT NOTE: PT COMPLETED SUPINE TO SIT WITH WITH MOD A X2. PT COMPLETED SIT TO STANDS WITH MOD A X2. PT COMPLETED LB HYGIENE TASKS WITH TOTAL A. [phone] ELLIE TOLENTINO COTA
[2020-02-25 20:00] VITALS: BP 169/76
--- NOTE | 2020-02-26 02:49 | NUR ---
I have reviewed this patient and I concur with the Shift Assessment completed by the Licensed Practical Nurse today this shift.
[2020-02-26 04:00] VITALS: BP 182/86
[2020-02-26 05:33] LABS: BASOPHILS 0 % (0-2); HEMATOCRIT 31.2 % (42.0-54.0); HEMOGLOBIN 9.9 g/dL (13.5-17.5); IMMATURE GRANULOCYTES 0.3 % (0-5); LYMPHOCYTES 22.4 % (15-50); MCH 29.5 pg (26.0-34.0); MCHC 31.7 g/dL (31.0-37.0); MCV 92.9 fL (80.0-100.0); MEAN PLATELET VOLUME 9.5 fL (7.4-10.4); MONOCYTES 9.6 % (2-11); NEUTROPHILS 66.7 % (40-80); PLATELET COUNT 124 10x3/uL (130-400); RBC 3.36 10x6/uL (4.20-6.10); RDW 15.5 % (11.5-14.5)
[2020-02-26 06:05] LABS: ALBUMIN 3.6 g/dL (3.4-5.0); ALKALINE PHOSPHATASE 58 U/L (30-120); BILIRUBIN - TOTAL 1.39 mg/dL (0.2-1.3); CALC OSMOLALITY 282 mosm/kg (275-300); CALCIUM 8.4 mg/dL (8.5-10.1); CARBON DIOXIDE 28.4 mmol/L (21.0-32.0); CHLORIDE - SERUM 106 mmol/L (98-107); CREATININE - SERUM 0.6 mg/dL (0.6-1.3); GLUCOSE 123 mg/dL (74-106); POTASSIUM - SERUM 3.5 mmol/L (3.5-5.1); PROTEIN - SERUM 5.7 g/dL (6.4-8.2); SODIUM 142 mmol/L (136-145); UREA NITROGEN 9 mg/dL (7-18); eGFR NON AFRICAN AMERICAN > 90 mL/min (90-120)
[2020-02-26 06:08] LABS: ALT (SGPT) 15 U/L (10-68)
[2020-02-26 09:47] VITALS: BP 161/77
--- NOTE | 2020-02-26 10:25 | NUR ---
PT REPORTS PAIN 12/22. PAIN MEDICATION ADMINISTERED PER MD ORDERS. ALBUMIN ADMINISTERING PER ORDERS. DENIES FURTHER NEEDS AT THIS TIME. CL WITHIN REACH. ENCOURAGED TO CALL WITH NEEDS.
[2020-02-26 11:57] VITALS: BP 127/73
--- NOTE | 2020-02-26 12:54 | NUR ---
OT NOTE: BED MOB WITH MIN ASSIST; SIMPLE GROOMING AND HYGIENE WITH SET UP; MAX ASSIST TO GAGANDEEP SOCKS. SIT TO STAND IWHT MIN ASSIST AND WALKER; AMB IN ROOM APPROX 10 FT WITH RW AND MIN/MOD ASSIST. VERY FATIGUED FOLLOWING THERAPY. TRANSFERRED TO CHAIR WITH MIN ASSIST; EDUCATED ON UE/LE EXS WHILE UP IN CHAIR CORINNE HOOD, OTR/L [phone]
--- NOTE | 2020-02-26 17:04 | NUR ---
OT NOTE: PT COMPLETED CHAIR TO BED TSF WITH CGA. PT COMPLETED SIT TO STAND WITH SBA-CGA. PT COMPLETED BUE AROM EXS. [phone] ELLIE TOLENTINO COTA
[2020-02-26 18:59] VITALS: BP 170/70
--- NOTE | 2020-02-26 19:30 | NUR ---
PT IN BED, AAO X 3, RESP EVEN AND UNLABORED, NO DISTRESS NOTED, CL IN REACH, SR UP X 2.
[2020-02-26 20:00] VITALS: BP 127/70
[2020-02-27 04:00] VITALS: BP 162/78
[2020-02-27 05:44] LABS: HEMOGLOBIN 9.9 g/dL (13.5-17.5); MCH 29.7 pg (26.0-34.0); MCHC 31.9 g/dL (31.0-37.0); MCV 93.1 fL (80.0-100.0); MEAN PLATELET VOLUME 9.6 fL (7.4-10.4); PLATELET COUNT 112 10x3/uL (130-400); RBC 3.33 10x6/uL (4.20-6.10); RDW 15.4 % (11.5-14.5); WBC 2.9 10x3/uL (4.8-10.8)
[2020-02-27 05:59] LABS: ALBUMIN 3.8 g/dL (3.4-5.0); ALKALINE PHOSPHATASE 57 U/L (30-120); ALT (SGPT) 18 U/L (10-68); BILIRUBIN - TOTAL 1.53 mg/dL (0.2-1.3); CALC OSMOLALITY 287 mosm/kg (275-300); CALCIUM 8.7 mg/dL (8.5-10.1); CARBON DIOXIDE 28.5 mmol/L (21.0-32.0); CHLORIDE - SERUM 105 mmol/L (98-107); GLUCOSE 112 mg/dL (74-106); POTASSIUM - SERUM 3.5 mmol/L (3.5-5.1); SODIUM 145 mmol/L (136-145); UREA NITROGEN 8 mg/dL (7-18)
[2020-02-27 06:06] LABS: CREATININE - SERUM 0.8 mg/dL (0.6-1.3); eGFR NON AFRICAN AMERICAN > 90 mL/min (90-120)
[2020-02-27 07:27] LABS: EOSINOPHILS 1 % (0-7); LYMPHOCYTES 11 % (15-50); MONOCYTES 3 % (2-11); NEUTROPHILS 85 % (40-80); PLATELET ESTIMATE NORMAL
[2020-02-27 08:00] VITALS: BP 152/80
--- NOTE | 2020-02-27 08:00 | NUR ---
PT RESTING QUIETLY IN BED. PT HAD MEDIUM BM, ASSISTED PT WITH CARE. IV TO ABDOMEN INTACT, SITE WITHOUT REDNESS OR EDEMA. REPORTS PAIN 4/10 AT THIS TIME. DENIES FURTHER NEEDS AT THIS TIME. CL WITHIN REACH. ENCOURAGED TO CALL WITH NEEDS. CONTINUE POC
[2020-02-27] MEDS ORDERED: HYDROCODON-ACE1 EAC7 PO (11:52)
[2020-02-27] MEDS ORDERED: CHRONULAC30 ML NG (11:52)
[2020-02-27] MEDS ORDERED: Tylenol NG (11:52)
[2020-02-27] MEDS ORDERED: PERFOROMIS20 MCG/21 UPD (11:52)
[2020-02-27] MEDS ORDERED: ATROVENT 0.02%2.5 ML UPD (11:52)
[2020-02-27] MEDS ORDERED: ALBUMINAR-25100 ML IV (11:52)
[2020-02-27] MEDS ORDERED: FLORAJEN3 CAPS460 MG PO (11:53)
[2020-02-27] MEDS ORDERED: NYSTATIN1 PWD TOPICAL (11:53)
[2020-02-27] MEDS ORDERED: HUMALOG 30100 UNITS/ SC (11:53)
[2020-02-27] MEDS ORDERED: PROTONIX40 MG PO (11:53)
[2020-02-27] MEDS ORDERED: PULMICORT0.5 MG/21 UPD (11:53)
[2020-02-27] MEDS ORDERED: ZOFRAN ODT4 MG/UDTAB PO (11:54)
[2020-02-27 14:13] VITALS: BP 156/85
--- NOTE | 2020-02-27 15:31 | NUR ---
Rehab Note- Received call from Malgorzata with [facility] and stated would be faxing auth approval letter for inpatient acute rehab stay. Received faxed letter, Auth # [id number]. Will accept the patient today to [facility], discussed in AM IDT call and spoke with HAZEL Kenny. Thank you for this referral! Stephanie Frye RN Clinical Liaison, [facility]
[2020-02-27] MEDS ORDERED: PROPRANOLOL HCL20 MG PO (23:07)
[2020-02-27] MEDS ORDERED: XIFAXAN550 MG PO (23:08)
[2020-02-27] MEDS ORDERED: GLUCOPHAGE500 MG PO (23:08)
--- NOTE | 2020-02-28 17:57 | NUR ---
OT NOTE: (DOS 02/27/2020) PT COMPLETED SUPINE TO SIT WITH CGA/MIN A. PT COMPLETED SIT TO STAND WITH CGA/MIN A. PT COMPLETED UE AROM AXS TOLERATED. PT EXHIBITED INCREASED FUNCTIONAL INDEPENDENCE. PT EXHIBITED INCREASED ACTIVITY TOLERANCE. [phone] ELLIE TOLENTINO COTA
[2020-02-28 19:08] LABS: OVA + PARASITE EXAM Final report (())
--- NOTE | 2020-03-02 09:05 | MORECARE ---
CASE MANAGEMENT DISCHARGE SUMMARY PATIENT: CANDIDO ESTEVEZ UNIT: [id number] ADM DATE: 02/03/20 AGE: 60 : 56 SEX: M ROOM/BED: D.2237 AUTHOR: IGNACIO,DOC PHYSICIAN: REFERRING PHYSICIAN: MAXINE NAYAK DO DATE OF SERVICE: 03/02/20 Discharge Plan Patient Name: CANDIDO ESTEVEZ Facility: [facility]:[place] : 1960 Planned Disposition: Home Anticipated Discharge Date: Discharge Date: 02/27/2020 Expected LOS: Initial Reviewer: [email or web address] Initial Review Date: 02/03/2020 Generated: 03/02/20 10:05 am DCP- Discharge Planning Updated by [email or web address]: Zoya Figueredo on 02/25/20 7:[address] Patient Name: CANDIDO ESTEVEZ Admission Status: ER Accout number: [id number] Admission Date: 02-03-2020 : 1960 Admission Diagnosis:ACUTE PANCREATITIS WITHOUT NECROSIS OR INFECTION, UNSP Attending: MAXINE NAYAK Current LOS: 22 Anticipated DC Date: Planned Disposition: Home Primary Insurance: [employer] Discharge Planning Comments: RECEIVED CALL FROM EDEN SARMIENTO APN AT THE [place], SHE GAVE ME HER FAX NUMBER [phone]. I HAVE FAXED HER INFORMATION FOR THIS PATIENT TO BE APPROVED FOR [facility]. WAITING HER CALL BACK TO SEE IF [facility]IENT [facility]. Mold Repairer: Zoya Figueredo DCP- Discharge Planning Updated by [id number]: Zoya Figueredo on 02/21/20 12:[address] Patient Name: CANDIDO ESTEVEZ Admission Status: ER Accout number: [id number] Admission Date: 02-03-2020 : 1960 Admission Diagnosis:ACUTE PANCREATITIS WITHOUT NECROSIS OR INFECTION, UNSP Attending: MAXINE NAYAK Current LOS: 18 Anticipated DC Date: Planned Disposition: Home Primary Insurance: [employer] Discharge Planning Comments: CM SPOKE WITH GARRICK AT THE [place] AND RECOMENDS [facility]. I HAVE FAXED THE OT AND PT EVALS TO EDEN SARMIENTO APN AT THE [place] FOR APPROVAL OF [facility]. WAITING CALL BACK. Mold Repairer: Zoya Bea DCP- Discharge Planning Updated by [id number]: Joann Nice on 02/14/20 3:[address] Patient Name: CANDIDO ESTEVEZ Admission Status: ER Accout number: [id number] Admission Date: 02-03-2020 : 1960 Admission Diagnosis:ACUTE PANCREATITIS WITHOUT NECROSIS OR INFECTION, UNSP Attending: MAXINE NAYAK Current LOS: 11 Anticipated DC Date: Planned Disposition: Primary Insurance: [facility] Discharge Planning Comments: CM met with patient's mother Macey to complete initial dc planning assessment. CM educated patient on the CM role and verbal consent given by patient to complete assessment. Patient lives at home with family. Patient is independent. At discharge patient plans to return home and feels this is a safe discharge. CM discussed availability of home health, rehab services, and medical equipment. Patient will have family to transport home. Patient denied known discharge needs at this time. CM will continue to follow and will assist as needed with dc plans/needs. Mold Repairer: Joann Nice DCP- Discharge Planning Updated by [email or web address]: Joann Nice on 02/14/20 11:[address] CM received a call from Garrick @ [place] continuous pillowcase cutter [phone]. checking on patient status. CM can call with discharge assistance. DCP- Discharge Planning Updated by [id number]: Joann Nice on 02/05/20 7:[address] CM attempted to manager contact of contact Jaycob Lester [phone]. CM didn't get an answer. CM will continue to try to get discharge planning assessment completed. Patient is currently on vent and sedated. DCPIA - Discharge Planning Initial Assessment Updated by [id number]: Joann Nice on 02/14/20 4:40 pm * Is the patient Alert and Oriented? No * How many steps to enter\exit or inside your home? * PCP [facility] * Pharmacy [facility] * Preadmission Environment Home with Family * ADLs Independent * List name and contact numbers for known caregivers / representatives who currently or will assist patient after discharge: JAYCOB LESTER [facility] - [phone] * Verbal permission to speak to the caregivers and representatives has been obtained from the patient. Yes * Community resources currently utilized None * Additional services required to return to the preadmission environment? No * Can the patient safely return to the preadmission environment? Yes * Has this patient been hospitalized within the prior 30 days at any hospital? No Last DP export: 02/25/20 7:58 Patient Name: CANDIDO ESTEVEZ Page [id number] at 0905 All edits/amendments must be made on the electronic document DICTATION DATE: 03/02/20904 MANAGER FIELD: ALEXANDREA 03/02/20904 RPT#: [id number] DC DATE:02/27/20 STATUS: DIS IN [facility] [address] [place] [address] END OF REPORT
== END 2020-02-27 18:29 | DRG 870 ==
LOC: D.ER 14:06 → D.CVICU 17:28 → D.ICU 17:28 → D.CVICU 02-08 18:08 → D.ICU 02-16 16:52 → D.MS 02-19 17:07
PROVIDERS: Family Medicine; Family Medicine Adult Medicine; Internal Medicine Hematology & Oncology; Internal Medicine Nephrology; Internal Medicine Pulmonary Disease; ADMIT Family Medicine; ATTEND Family Medicine
PROC: 5A1955Z Respiratory Ventilation, Greater than 96 Consecutive Hours (ICD-10-PCS; principal; 2020-02-04)
PROC: 0BH17EZ Insertion of Endotracheal Airway into Trachea, Via Natural or Artificial Opening (ICD-10-PCS; 2020-02-04)
PROC: 05H633Z Insertion of Infusion Device into Left Subclavian Vein, Percutaneous Approach (ICD-10-PCS; 2020-02-04)
PROC: 03HB33Z Insertion of Infusion Device into Right Radial Artery, Percutaneous Approach (ICD-10-PCS; 2020-02-04)
PROC: 0B9F8ZX Drainage of Right Lower Lung Lobe, Via Natural or Artificial Opening Endoscopic, Diagnostic (ICD-10-PCS; 2020-02-07)
PROC: 05PY33Z Removal of Infusion Device from Upper Vein, Percutaneous Approach (ICD-10-PCS; 2020-02-15)
PROC: 05H533Z Insertion of Infusion Device into Right Subclavian Vein, Percutaneous Approach (ICD-10-PCS; 2020-02-15)
PROC: 0B9J8ZX Drainage of Left Lower Lung Lobe, Via Natural or Artificial Opening Endoscopic, Diagnostic (ICD-10-PCS; 2020-02-18)
DX: A41.9 Sepsis, unspecified organism (principal); K85.90 Acute pancreatitis without necrosis or infection, unspecified; J96.00 Acute respiratory failure, unspecified whether with hypoxia or hypercapnia; G93.41 Metabolic encephalopathy; I21.A1 Myocardial infarction type 2; R65.21 Severe sepsis with septic shock; J18.9 Pneumonia, unspecified organism; E87.1 Hypo-osmolality and hyponatremia; N17.9 Acute kidney failure, unspecified; K92.2 Gastrointestinal hemorrhage, unspecified; I48.20 Chronic atrial fibrillation, unspecified; E87.2 Acidosis; D68.9 Coagulation defect, unspecified; N39.0 Urinary tract infection, site not specified; K74.60 Unspecified cirrhosis of liver; K72.90 Hepatic failure, unspecified without coma; E87.5 Hyperkalemia; R11.2 Nausea with vomiting, unspecified; R10.9 Unspecified abdominal pain; D72.829 Elevated white blood cell count, unspecified; E11.9 Type 2 diabetes mellitus without complications; R79.89 Other specified abnormal findings of blood chemistry; K80.20 Calculus of gallbladder without cholecystitis without obstruction; I95.9 Hypotension, unspecified; D69.6 Thrombocytopenia, unspecified; R00.0 Tachycardia, unspecified; R74.01 Elevation of levels of liver transaminase levels; E83.42 Hypomagnesemia; E83.39 Other disorders of phosphorus metabolism; E87.6 Hypokalemia; E66.01 Morbid (severe) obesity due to excess calories; Z68.39 Body mass index [BMI] 39.0-39.9, adult

== ENCOUNTER 2020-08-07 14:27 | Inpatient (IN) | payer OTHER, MEDICARE ==
[~2020-08-07] VITALS: Ht 170.2 cm; Wt 114.2 kg
[2020-08-07] VITALS (8 sets, daily range): BP systolic 108–146; BP diastolic 61–104; BMI 36.8
--- NOTE | ~2020-08-07 | EC ---
PATIENT:CANDIDO ESTEVEZ DATE OF SERVICE: 08/07/20 SEX: M MEDICAL RECORD: [id number] DATE OF : [birth year] LOCATION:[place] [address] AGE OF PATIENT: 60 ADMISSION DATE: 08/07/20 REFERRING PHYSICIAN: INTERPRETING PHYSICIAN: RADHA BEST MD ECHOCARDIOGRAM REPORT ECHO CHARGES 4 ECHO COMPLETE Date: 08/09/20 CLINICAL DIAGNOSIS: AFIB ECHOCARDIOGRAPHIC MEASUREMENTS (adult normal given) AC root (d.<3.7cm) 3.7 cm LV Septum d (<1.2 cm> 1.1 cm Valve Excursion 1.9 cm LV Septum (systole) 1.5 cm Left Atria (s.<4.0cm> 4.1 cm LVPW d(<1.2cm) 1.2 cm RV (d.<2.3cm) 3.6 cm LVPW (sytole) 1.6 cm LV diastole(<5.6CM) 5.2 cm MV E-F(>70mm/sec) cm LV systole 3.2 cm LVOT Diameter 1.9 cm MV exc.(>10mm) 1.2 cm Est.ejection fraction (50-75%) % DOPPLER: LVIT cm/sec A 80 cm/sec E 59 cm/sec LA cm/sec RVSP 23 mmHg LVOT 101 cm/sec AOP1/2T m/s Asc. Ao 147 cm/sec RVOT 48 cm/sec RA cm/sec PA 78 cm/sec AV Gradient Peak 8.6 mmHg AV Mean 4.2 mmHg AV Area 2.0 cm MV Gradient Peak 2.3 mmHg MV Mean 1.4 mmHg MV Area cm COMMENTS: Surgical Consultant: Rina ADAMS Manager Room: 4 Dr. Best TAPE# Pericardial Effusion N DATE OF SERVICE: PROCEDURE: Transthoracic echocardiogram. FINDINGS: Left ventricle has concentric left ventricular hypertrophy with an ejection fraction of 55%. There is no evidence of regional wall motion abnormalities. There is diastolic dysfunction. The right ventricle is mildly dilated with normal function. ECHOCARDIOGRAM REPORT [id number] CANDIDO ESTEVEZ The aortic valve is grossly normal. The mitral valve has trace mitral regurgitation, otherwise normal. Tricuspid valve has normal structure and function. Pulmonic valve has normal structure and function, but not well visualized. There is no evidence of pleural effusion or pericardial effusion. The right atrium is mildly dilated. IMPRESSION: The patient has normal echocardiogram with the exception of mild to moderate concentric left ventricular hypertrophy and diastolic dysfunction. The patient's ejection fraction is 55%. TRANSINT:[id number] Voice Confirmation ID: [id number] DOCUMENT ID: [id number] RADHA BEST MD CC: [id number] DICTATION DATE: 08/09/20 1337 ROLL MACHINE OPERATOR: 08/09/202131 ADM IN [place] [address] [place] [address]
[~2020-08-07 14:27] MED LIST: ALBUMINAR-25100 ML IV; ATROVENT 0.02%2.5 ML UPD; CHRONULAC30 ML NG; FLORAJEN3 CAPS460 MG PO; GLUCOPHAGE500 MG PO; HUMALOG 30100 UNITS/ SC; HYDROCODON-ACE1 EAC7 PO; NYSTATIN1 PWD TOPICAL; PERFOROMIS20 MCG/21 UPD; PROPRANOLOL HCL20 MG PO; PROTONIX40 MG PO; PULMICORT0.5 MG/21 UPD; Tylenol NG; XIFAXAN550 MG PO; ZOFRAN ODT4 MG/UDTAB PO
--- NOTE | 2020-08-07 14:55 | NUR ---
STOOL FOR OCCULT BLOOD COLLECTED= POSITIVE. DR JAIMES NOTIFIED
[2020-08-07 15:03] LABS: BASOPHILS 0.1 % (0-2); EOSINOPHILS 0 % (0-7); HEMATOCRIT 48.4 % (42.0-54.0); HEMOGLOBIN 17.3 g/dL (13.5-17.5); IMMATURE GRANULOCYTES 0.2 % (0-5); LYMPHOCYTE ABS# 1.08 10x3/uL (1.32-3.57); LYMPHOCYTES 12.4 % (15-50); MCH 29.8 pg (26.0-34.0); MCHC 35.7 g/dL (31.0-37.0); MCV 83.3 fL (80.0-100.0); MEAN PLATELET VOLUME 8.5 fL (7.4-10.4); MONOCYTES 7.5 % (2-11); NEUTROPHIL ABS# 6.95 10x3/uL (1.78-5.38); NEUTROPHILS 79.8 % (40-80); RBC 5.81 10x6/uL (4.20-6.10); RDW 15.1 % (11.5-14.5); WBC 8.7 10x3/uL (4.8-10.8)
[2020-08-07 15:07] LABS: APTT 30.1 SECONDS (22.8-39.4); INR 1.49 (0.85-1.17); PROTIME 16.7 SECONDS (11.6-15.0)
[2020-08-07 15:09] LABS: ANION GAP 20.5 mmol/L (8-16); CALCIUM 9.4 mg/dL (8.5-10.1); CARBON DIOXIDE 21.4 mmol/L (21.0-32.0); CREATININE - SERUM 1.1 mg/dL (0.6-1.3); POTASSIUM - SERUM 3.9 mmol/L (3.5-5.1)
[2020-08-07 15:10] LABS: PLATELET COUNT 116 10x3/uL (130-400)
[2020-08-07 15:15] LABS: ALBUMIN 4.1 g/dL (3.4-5.0); BILIRUBIN - TOTAL 3.69 mg/dL (0.2-1.3); PROTEIN - SERUM 7.6 g/dL (6.4-8.2)
--- NOTE | 2020-08-07 16:15 | NUR ---
URINE SPEC COLLECTED, LABELED AT BS AND SENT TO LAB
--- NOTE | 2020-08-07 16:16 | NUR ---
INFORMED DR JAIMES AND GHULAM CALVERT OF CONTINUED RAPID HR/A FIB AFTER FLD BOLUS NEW ORDERS RCVSD AND ADMIN
[2020-08-07 16:21] LABS: BILIRUBIN 3+ (NEGATIVE); KETONE MODERATE mg/dL (NEGATIVE); NITRITE POSITIVE (NEGATIVE); UROBILINOGEN 4 mg/dL (< 2)
[2020-08-07 16:26] LABS: UDS - AMPHET NEGATIVE QUAL (NEGATIVE); UDS - BARB NEGATIVE QUAL (NEGATIVE); UDS - BENZO NEGATIVE QUAL (NEGATIVE); UDS - COCAINE NEGATIVE QUAL (NEGATIVE); UDS - OPIATE NEGATIVE QUAL (NEGATIVE); UDS - PCP NEGATIVE QUAL (NEGATIVE); UDS - THC NEGATIVE QUAL (NEGATIVE); WHITE CELLS - URINE 0-5 HPF (0-1)
[2020-08-07 16:27] LABS: AMORPHOUS SEDIMENT MANY LPF (NONE SEEN); BACTERIA MODERATE HPF (NONE SEEN); SQUAMOUS EPITHELIAL NONE SEEN HPF (0-4)
--- NOTE | 2020-08-07 17:32 | NUR ---
RESTING IN BED WITH EYES CLOSED, SNORING RESP. VSS. HR DECREASED
--- NOTE | 2020-08-07 18:09 | NUR ---
CALLED [place], [place] [employer] ALL REQUESTED INFO FAXED: CONSENT TO [place], COVID SCREENING AND FACE SHEET
--- NOTE | 2020-08-07 18:23 | NUR ---
TO ROOM TO HAVE PT SIGN [facility] CONSENT TO [place]. PT REPORTS HE ALSO HAS MEDICARE INSURANCE AND WOULD RATHER STAY HERE AND NOT TRANSFER. AND [facility] NOTIFIED
--- NOTE | 2020-08-07 19:03 | NUR ---
BS REPORT TO ANY RN
[2020-08-07 21:06] LABS: MAGNESIUM - SERUM 1.9 mg/dL (1.8-2.4)
[2020-08-07 21:40] LABS: CKMB 1.6 U/L (0.0-3.6); CREATINE KINASE 87 UL (21-232)
[2020-08-07 21:42] LABS: TROPONIN-I < 0.017 ng/mL (0.000-0.060)
--- NOTE | 2020-08-07 21:58 | NUR ---
PT ARRIVED TO THE UNIT VIA STRETCHER, HE TRANSFERRED HIMSELF TO THE ICU BED AND HE WAS PLACED ON ICU MONITOR. SEE ASSESSMENT FOR ASSESSMENT FINDINGS. WILL CONTINUE TO MONITOR
[2020-08-07 22:36] LABS: BASOPHILS 0 % (0-2); EOSINOPHILS 0.1 % (0-7); HEMATOCRIT 41.9 % (42.0-54.0); HEMOGLOBIN 14.7 g/dL (13.5-17.5); LYMPHOCYTE ABS# 1.68 10x3/uL (1.32-3.57); LYMPHOCYTES 25.1 % (15-50); MCH 29.5 pg (26.0-34.0); MCHC 35.1 g/dL (31.0-37.0); MCV 84.1 fL (80.0-100.0); MEAN PLATELET VOLUME 8.4 fL (7.4-10.4); MONOCYTES 11.2 % (2-11); NEUTROPHIL ABS# 4.24 10x3/uL (1.78-5.38); NEUTROPHILS 63.6 % (40-80); RBC 4.98 10x6/uL (4.20-6.10); WBC 6.7 10x3/uL (4.8-10.8)
[2020-08-07 22:37] LABS: PLATELET COUNT 71 10x3/uL (130-400)
[2020-08-07 23:05] LABS: PLATELET ESTIMATE DECREASED; PLATELET MORPHOLOGY NORMAL PLT MORPH
[2020-08-08] VITALS (23 sets, daily range): BP systolic 98–199; BP diastolic 68–95; BMI 37.3
--- NOTE | 2020-08-08 01:22 | NUR ---
PT SLEEPING AT THIS TIME. AFIB ON MONITOR, WILL CONTINUE TO MONITOR.
[2020-08-08 03:35] LABS: BASOPHILS 0.2 % (0-2); EOSINOPHILS 0.6 % (0-7); HEMATOCRIT 41.1 % (42.0-54.0); HEMOGLOBIN 14.3 g/dL (13.5-17.5); IMMATURE GRANULOCYTES 0.2 % (0-5); LYMPHOCYTE ABS# 1.44 10x3/uL (1.32-3.57); LYMPHOCYTES 29.3 % (15-50); MCH 29.2 pg (26.0-34.0); MCHC 34.8 g/dL (31.0-37.0); MCV 83.9 fL (80.0-100.0); MEAN PLATELET VOLUME 8.4 fL (7.4-10.4); MONOCYTES 8.9 % (2-11); NEUTROPHIL ABS# 2.99 10x3/uL (1.78-5.38); NEUTROPHILS 60.8 % (40-80); PLATELET COUNT 59 10x3/uL (130-400); RDW 15.1 % (11.5-14.5)
[2020-08-08 03:36] LABS: WBC 4.9 10x3/uL (4.8-10.8)
[2020-08-08 03:43] LABS: INR 1.72 (0.85-1.17); PROTIME 18.7 SECONDS (11.6-15.0)
[2020-08-08 03:57] LABS: ALBUMIN 3.1 g/dL (3.4-5.0); ALKALINE PHOSPHATASE 73 U/L (30-120); ALT (SGPT) 46 U/L (10-68); BILIRUBIN - TOTAL 2.31 mg/dL (0.2-1.3); CALCIUM 8.3 mg/dL (8.5-10.1); CARBON DIOXIDE 22.9 mmol/L (21.0-32.0); CHLORIDE - SERUM 109 mmol/L (98-107); CKMB 1.5 U/L (0.0-3.6); CREATINE KINASE 63 UL (21-232); PROTEIN - SERUM 5.8 g/dL (6.4-8.2); SODIUM 143 mmol/L (136-145); TROPONIN-I 0.023 ng/mL (0.000-0.060); UREA NITROGEN 24 mg/dL (7-18)
[2020-08-08 04:02] LABS: CALC OSMOLALITY 289 mosm/kg (275-300); CREATININE - SERUM 0.8 mg/dL (0.6-1.3); GLUCOSE 110 mg/dL (74-106); MAGNESIUM - SERUM 2.4 mg/dL (1.8-2.4); eGFR NON AFRICAN AMERICAN > 90 mL/min (90-120)
[2020-08-08 04:03] LABS: PHOSPHOROUS 0.8 mg/dL (2.5-4.9)
--- NOTE | 2020-08-08 06:13 | NUR ---
REPORTS FEELING LIKE HE CAN NOT EMPTY BLADDER, BLADDER SCAN DONE AND OML OF FLUID FOUND.
[2020-08-08 09:23] LABS: CKMB 1.3 U/L (0.0-3.6); CREATINE KINASE 64 UL (21-232); TROPONIN-I < 0.017 ng/mL (0.000-0.060)
[2020-08-08 11:23] LABS: BASOPHILS 0.2 % (0-2); EOSINOPHILS 0.6 % (0-7); HEMATOCRIT 39.7 % (42.0-54.0); HEMOGLOBIN 14.2 g/dL (13.5-17.5); IMMATURE GRANULOCYTES 0.4 % (0-5); LYMPHOCYTE ABS# 1.15 10x3/uL (1.32-3.57); MCH 29.8 pg (26.0-34.0); MCHC 35.8 g/dL (31.0-37.0); MCV 83.2 fL (80.0-100.0); MONOCYTES 7.3 % (2-11); NEUTROPHIL ABS# 3.64 10x3/uL (1.78-5.38); NEUTROPHILS 69.5 % (40-80); PLATELET COUNT 52 10x3/uL (130-400); RBC 4.77 10x6/uL (4.20-6.10); RDW 15.2 % (11.5-14.5); WBC 5.2 10x3/uL (4.8-10.8)
[2020-08-08 14:27] LABS: HEMATOCRIT 40.7 % (42.0-54.0); HEMOGLOBIN 14.3 g/dL (13.5-17.5)
--- NOTE | 2020-08-08 18:14 | NUR ---
1730-RECIEVED INTO CV6-VIA WHEEL CHAIR-AMBULATED TO RESTROOM-PLACED TO MONITOR FOR SR 89-SAT-94%-MENTATION GOOD-REQUESTED HIS MOTHER BE CALLED WITH RM CHANGE AND GAVE CORRECT TELEPHONE NUMBER-STATED "HAVEN'T DRANK IN 90 days-DENIES ANY DISCOMFORT AT THIS TIME 1745-ASKING FOR CODEINE PAIN MEDICINE FOR BACK PAIN-INFORMED WILL BE ABLE TO GIVE IN 1-2 MORE
[2020-08-08 20:31] LABS: HEMATOCRIT 40.6 % (42.0-54.0); HEMOGLOBIN 14.2 g/dL (13.5-17.5)
[2020-08-09] VITALS (20 sets, daily range): BP systolic 112–142; BP diastolic 66–89; Ht 170.2 cm; Wt 114.2 kg
--- NOTE | 2020-08-09 00:39 | NUR ---
PATIENT ASSISTED MULTIPLE TIMES TO BATHROOM. PATIENT GOT OOB UNASSISTED AND PULLED IV FROM R AC. IV RESTARTED TO R FORARM X 1 ATTEMPT. Xavier LUCAS RN
[2020-08-09 03:05] LABS: HEMATOCRIT 37.5 % (42.0-54.0)
[2020-08-09 03:13] LABS: CALC OSMOLALITY 298 mosm/kg (275-300); CARBON DIOXIDE 24.6 mmol/L (21.0-32.0); CHLORIDE - SERUM 114 mmol/L (98-107); CREATININE - SERUM 0.8 mg/dL (0.6-1.3); GLUCOSE 149 mg/dL (74-106); POTASSIUM - SERUM 3.1 mmol/L (3.5-5.1); SODIUM 147 mmol/L (136-145); UREA NITROGEN 23 mg/dL (7-18); eGFR NON AFRICAN AMERICAN > 90 mL/min (90-120)
[2020-08-09 08:46] LABS: HEMATOCRIT 42.6 % (42.0-54.0); HEMOGLOBIN 14.7 g/dL (13.5-17.5)
--- NOTE | 2020-08-09 09:00 | NUR ---
0715-PT AWAKE AND ALERT-AMBULATING AROUND ROOM-TO TOILET- 0815-REQUESTING PAIN MEDICINE FOR BACK-CODEINE 30MG PO GIVEN AND ATIVAN 1MG IV FOR DT PROTOCOL 0845-CONVERSING ON TELEPHONE-SR ON MONITOR
[2020-08-09 14:23] LABS: HEMATOCRIT 37.9 % (42.0-54.0); HEMOGLOBIN 13.1 g/dL (13.5-17.5)
--- NOTE | 2020-08-09 14:25 | NUR ---
1030-DR GOTTI AT BEDSIDE-PT STATING "DON'T YPU SEE ALL THE THROW UP EVERYWHERE-NONE PRESENT--THE BLOOD IN TOILET-NONE PRESENT 1230-DR DEAN AT BEDSIDE-PT REPEATED SAME -AND STRESSED ABD AND BACK HURT SEVERLY-NOTED BLOOD IN TOILET REFERED TO IS URINE ORANGE COLOUR FROM PYRIDIUM DOSAGE-REASSURED BY DR DEAN NOT BLOOD 1415-LAB WORK DRAWN ORDERED
--- NOTE | 2020-08-09 16:50 | NUR ---
PT STATED MORPHINE IMPROVED PAIN IN ABD-STATED VOIDING PAIN FREE
--- NOTE | 2020-08-09 18:32 | NUR ---
[facility]STATED NO LONGER WAS STAYING IN --GENTLY ENCOURAGED TO RETURN ALLOWED PLACEMENT TO MONITOR-REFUSED NIBP AT THIS TIME-PT REQUESTED RAILS UP--DENIED EVER HAVING A ALCOHOL WITHDRAWAL EPISODE
[2020-08-09 22:52] LABS: HEMATOCRIT 38.6 % (42.0-54.0); HEMOGLOBIN 13.2 g/dL (13.5-17.5)
[2020-08-10] VITALS (12 sets, daily range): BP systolic 111–154; BP diastolic 61–94
--- NOTE | 2020-08-10 07:00 | NUR ---
SHIFT REPORT RECEIVED. AWAKE AND ALERT. FOLLOWS COMMANDS. NOTIFIES STAFF OF NEEDS. ON ROOM AIR. PIV TO RIGHT FOREARM ACCIDENTALY PULLED OUT. NEW 22G PIV PLACED TO RIGHT FOREARM. PT AMBULATED TO BATHROOM. HEART RATE NORMAL SINUS 90S. GENERALIZED BRUISING NOTED. SAFETY MEASURES IN PLACE. WILL CONTINUE TO MONITOR.
--- NOTE | 2020-08-10 07:01 | NUR ---
PATIENT UP AND DOWN WITH ASSIST THROUGOUT THE NIGHT. REMINDED MULTIPLE TIMES TO CALL FOR ASSIST. BED ALARM ACTIVE, PATIENT CONFUSED AND FRUSTRATED WITH BED ALARM. DISCUSSED USING PAIN MEDS TO SLEEP VS FOR PAIN. Jake LUCAS RN
[2020-08-10 08:27] LABS: CALCIUM 7.9 mg/dL (8.5-10.1); CARBON DIOXIDE 24.8 mmol/L (21.0-32.0); CHLORIDE - SERUM 111 mmol/L (98-107); CREATININE - SERUM 0.6 mg/dL (0.6-1.3); GLUCOSE 151 mg/dL (74-106); SODIUM 144 mmol/L (136-145); eGFR NON AFRICAN AMERICAN > 90 mL/min (90-120)
[2020-08-10 08:29] LABS: CALC OSMOLALITY 290 mosm/kg (275-300); UREA NITROGEN 14 mg/dL (7-18)
[2020-08-10 08:30] LABS: POTASSIUM - SERUM 2.9 mmol/L (3.5-5.1)
--- NOTE | 2020-08-10 08:39 | NUR ---
POTASSIUM 2.9. ELECTROLYTE PROTOCOL FOLLOWED. PT SITTING ON SIDE OF BED. EATING BREAKFAST.
[2020-08-10 08:44] LABS: BASOPHILS 0 % (0-2); EOSINOPHILS 3.3 % (0-7); HEMATOCRIT 38.9 % (42.0-54.0); HEMOGLOBIN 13.3 g/dL (13.5-17.5); LYMPHOCYTE ABS# 0.85 10x3/uL (1.32-3.57); LYMPHOCYTES 27.8 % (15-50); MCH 29.4 pg (26.0-34.0); MCHC 34.2 g/dL (31.0-37.0); MCV 86.1 fL (80.0-100.0); MEAN PLATELET VOLUME 9.3 fL (7.4-10.4); MONOCYTES 6.9 % (2-11); RBC 4.52 10x6/uL (4.20-6.10); RDW 15.8 % (11.5-14.5); WBC 3.1 10x3/uL (4.8-10.8)
[2020-08-10 08:45] LABS: PLATELET COUNT 44 10x3/uL (130-400)
--- NOTE | 2020-08-10 08:56 | NUR ---
PLATELET COUNT CRITICALLY LOW. DR. DE LA FUENTE NOTIFIED. WILL CONSULT DR. WILLSON.
[2020-08-10 09:53] LABS: % SATURATION 18 % (15-55); IRON 39 ug/dl (35-150); TOTAL IRON BIND CAPACITY 210 ug/dl (260-445); UNSAT IRON BIND CAPACITY 171 ug/dl (150-375)
[2020-08-10 10:31] LABS: PLATELET ESTIMATE DECREASED
[2020-08-10 10:33] LABS: ANISOCYTOSIS OCC; ROULEAUX OCC
--- NOTE | 2020-08-10 11:26 | NUR ---
PT TO BE TRANSFERRED TO ROOM 2213. REPORT CALLED TO LILIANA.
--- NOTE | 2020-08-10 11:42 | NUR ---
TRANSFERRED TO ROOM 2213. PERSONAL BELONGINGS SENT WITH PT INCLUDING PHONE AND BARGAIN TABLE CLERK.
--- NOTE | 2020-08-10 12:24 | NUR ---
Nutrition Reassessment/Follow-up: Transferred out of CVICU. Good PO intake reported this AM. Diet: Regular, Low Na Wt: 251.3# (08/10)Adj BW: 173.8# Labs noted: K+ 2.9, Ca 7.9, Glu 151, POC Glu 232 Meds noted: Protonix, Carafate, Lactulose, Florajen, Humulin, NS @ 100, electrolyte protocol Est needs: 8559-8458 kcal/day (25-30 kcal/kg adj BW) 80-95 g protein/day (1-1.2 g/kg adj BW) 7559-0528 mL fluid/day (1 mL/kcal) or per MD -Change to Low Sodium, Carb Consistent diet. Pt with PMHx of DM, Glu elevated. -RD will follow up within 7 days if pt still admitted.
--- NOTE | 2020-08-10 15:43 | NUR ---
A LADY CALLED SAYING SHE WAS THE PATIENT MOTHER AND DID NOT HAVE THE CODE BUT KNEW THE PHONE NUMBER ON FILE AND THE CORRECT NAME SO A SECURITY CODE GIVEN AND TALKED WITH PATIENT ABOUT THIS INDIVIDUAL WANTING TO KNOW WHY HE IS HERE AND HE SAID TO NOT GIVE OUT ANY INFORMATION. THIS IS WHAT I TOLD THE INDIVIDUAL ON THE PHONE.
[2020-08-11 00:16] VITALS: BP 152/82
[2020-08-11 04:00] VITALS: BP 138/75
--- NOTE | 2020-08-11 06:21 | NUR ---
I have reviewed this patient and I concur with the Shift Assessment completed by the Licensed Practical Nurse today this shift.
[2020-08-11 06:47] LABS: ALBUMIN 2.7 g/dL (3.4-5.0); ALKALINE PHOSPHATASE 65 U/L (30-120); ALT (SGPT) 73 U/L (10-68); BASOPHILS 0 % (0-2); BILIRUBIN - TOTAL 0.86 mg/dL (0.2-1.3); CALC OSMOLALITY 284 mosm/kg (275-300); CALCIUM 7.6 mg/dL (8.5-10.1); CARBON DIOXIDE 25.9 mmol/L (21.0-32.0); CHLORIDE - SERUM 109 mmol/L (98-107); CREATININE - SERUM 0.5 mg/dL (0.6-1.3); EOSINOPHILS 2.9 % (0-7); GLUCOSE 134 mg/dL (74-106); HEMATOCRIT 37.3 % (42.0-54.0); HEMOGLOBIN 12.4 g/dL (13.5-17.5); IMMATURE GRANULOCYTES 0.3 % (0-5); MCHC 33.2 g/dL (31.0-37.0); MCV 87.1 fL (80.0-100.0); MEAN PLATELET VOLUME 9.6 fL (7.4-10.4); MONOCYTES 8.2 % (2-11); NEUTROPHIL ABS# 1.84 10x3/uL (1.78-5.38); NEUTROPHILS 53.6 % (40-80); POTASSIUM - SERUM 3.1 mmol/L (3.5-5.1); PROTEIN - SERUM 4.9 g/dL (6.4-8.2); RBC 4.28 10x6/uL (4.20-6.10); SODIUM 142 mmol/L (136-145); UREA NITROGEN 13 mg/dL (7-18); WBC 3.4 10x3/uL (4.8-10.8); eGFR NON AFRICAN AMERICAN > 90 mL/min (90-120)
[2020-08-11 06:49] LABS: PLATELET COUNT 58 10x3/uL (130-400)
[2020-08-11 08:49] VITALS: BP 158/79
--- NOTE | 2020-08-11 09:29 | NUR ---
ALERT AND ORIENTED. ASSESSMENT COMPLETE. DENIES NEEDS. BED LOW. CALL GUZMAN AND PERSONAL ITEMS IN REACH. WILL CONTINUE TO MONITOR.
--- NOTE | 2020-08-11 10:39 | NUR ---
CALLED SHANTANU AT TELE MONITORY FOR TELE FOR PATIENT.
[2020-08-11 11:10] LABS: HEPATITIS C ANTIBODY <0.1 S/CO RAT (0.0-0.9)
[2020-08-11 11:44] VITALS: BP 136/72
--- NOTE | 2020-08-11 12:28 | NUR ---
CONSENT OBTAINED FOR CT BIOPSY TOMORROW AND ON CHART.
--- NOTE | 2020-08-11 12:56 | NUR ---
IV INFILTRATED TO RFA. REMOVED WITH TIP INTACT. RESITED TO LFA AFTER ONE ATTEMPT WITH 20 GAUGE.
--- NOTE | 2020-08-11 15:15 | NUR ---
HAT PLACED IN PATIENT'S TOILET AND EDUCATION PROVIDED TO PATIENT ON NEED FOR STOOL SAMPLE.
[2020-08-11 16:52] VITALS: BP 125/75
[2020-08-11 19:09] LABS: HEMATOCRIT 36.8 % (42.0-54.0); HEMOGLOBIN 12.6 g/dL (13.5-17.5); LYMPHOCYTE ABS# 0.78 10x3/uL (1.32-3.57); MCHC 34.2 g/dL (31.0-37.0); MCV 87.6 fL (80.0-100.0); NEUTROPHIL ABS# 1.71 10x3/uL (1.78-5.38); PLATELET COUNT 58 10x3/uL (130-400); WBC 2.8 10x3/uL (4.8-10.8)
[2020-08-11 20:00] VITALS: BP 139/73
[2020-08-11 21:13] LABS: EOSINOPHILS 3 % (0-7); LYMPHOCYTES 37 % (15-50); NEUTROPHILS 60 % (40-80); PLATELET ESTIMATE DECREASED
[2020-08-12] VITALS: BP 130/69
[2020-08-12 04:00] VITALS: BP 130/69; BP 142/81
--- NOTE | 2020-08-12 07:12 | NUR ---
PT RESTED THROUGHOUT THE SHIFT. COMPLAINED OF PAIN IN THE ABD AREA. PAIN MEDS WERE GIVEN AND EFFECTIVE. NPO SINCE MIDNIGHT. ABLE TO MAKE WANTS AND NEEDS KNOWN. BED IN LOWEST POSITION AND CALL GUZMAN LIGHT IN REACH.
[2020-08-12 07:52] LABS: ALBUMIN 2.8 g/dL (3.4-5.0); ALKALINE PHOSPHATASE 68 U/L (30-120); ALT (SGPT) 85 U/L (10-68); CALC OSMOLALITY 281 mosm/kg (275-300); CARBON DIOXIDE 26.6 mmol/L (21.0-32.0); CHLORIDE - SERUM 109 mmol/L (98-107); CREATININE - SERUM 0.6 mg/dL (0.6-1.3); GLUCOSE 126 mg/dL (74-106); POTASSIUM - SERUM 3.6 mmol/L (3.5-5.1); PROTEIN - SERUM 5.2 g/dL (6.4-8.2); SODIUM 141 mmol/L (136-145); UREA NITROGEN 11 mg/dL (7-18); eGFR NON AFRICAN AMERICAN > 90 mL/min (90-120)
[2020-08-12 08:26] VITALS: BP 124/76
[2020-08-12 08:46] LABS: BASOPHILS 0 % (0-2); EOSINOPHILS 3.6 % (0-7); HEMATOCRIT 37.3 % (42.0-54.0); HEMOGLOBIN 12.4 g/dL (13.5-17.5); LYMPHOCYTE ABS# 0.86 10x3/uL (1.32-3.57); LYMPHOCYTES 30.8 % (15-50); MCH 29.2 pg (26.0-34.0); MCHC 33.2 g/dL (31.0-37.0); MEAN PLATELET VOLUME 9.9 fL (7.4-10.4); MONOCYTES 10.8 % (2-11); NEUTROPHIL ABS# 1.53 10x3/uL (1.78-5.38); NEUTROPHILS 54.8 % (40-80); PLATELET COUNT 57 10x3/uL (130-400); RBC 4.24 10x6/uL (4.20-6.10); RDW 16.3 % (11.5-14.5); WBC 2.8 10x3/uL (4.8-10.8)
[2020-08-12 08:49] LABS: APTT 33.6 SECONDS (22.8-39.4)
--- NOTE | 2020-08-12 09:20 | NUR ---
RESTING IN BED, NO DISTRESS NOTED, TELE IN PLACE, IV INFUSING, NPO FOR BONE BIOPSY THIS AM
[2020-08-12 10:02] LABS: INR 1.34 (0.85-1.17); PROTIME 15.4 SECONDS (11.6-15.0)
[2020-08-12 12:01] VITALS: BP 136/81
--- NOTE | 2020-08-12 14:01 | NUR ---
PATIENT INDEPENDENT IN BOB, WALKED 80 FEET.
--- NOTE | 2020-08-12 14:50 | NUR ---
TAKEN TO CT PER BED
[2020-08-12] MEDS ORDERED: MULTI-DAY VITAM1 TAB PO (15:58)
[2020-08-12] MEDS ORDERED: TOPROL XL25 MG PO (15:58)
[2020-08-12] MEDS ORDERED: CARDIZEM CD180 MG PO (15:58)
[2020-08-12] MEDS ORDERED: VITAMIN B-1100 M1 PO (15:58)
[2020-08-12] MEDS ORDERED: FOLIC ACID1 MG PO (15:58)
[2020-08-12] MEDS ORDERED: CHRONULAC30 ML PO (16:00)
[2020-08-12] MEDS ORDERED: PROTONIX40 MG PO (16:00)
[2020-08-12] MEDS ORDERED: CARAFATE1 G PO (16:00)
[2020-08-12] MEDS ORDERED: POLYTRIM EYE DR10 ML EACH EYE (16:00)
[2020-08-12] MEDS ORDERED: FLORAJEN3 CAPS460 MG PO (16:00)
--- NOTE | 2020-08-12 16:10 | NUR ---
PATIENT SPOKE TO CASE MANAGEMENT, STATES HE IS NOT FEELING WELL AND IS STILL WEAK. WOULD LIKE TO STAY THE EVENING AND GO HOME FIRST THING IN THE MORNING. SAFETY ATTENDANT NOTIFIED BY CASE MANAGEMENT. CONTINUE WITH PLAN OF CARE
--- NOTE | 2020-08-12 16:50 | NUR ---
OT NOTE: PT COMPLETED SUPINE TO SIT WITH SBA. PT COMPELETED ADL MOB WITH CGA. PT COMPLETED EOB SITTING WITH SPV. PT COMPLETED FACE HYGIENE WITH SETUP. PT COMPLETED GAGANDEEP SOCKS WITH SETUP. PT DID WELL. [id number] THANK YOU,JACEK MUIR
[2020-08-12 17:05] VITALS: BP 109/69
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
--- NOTE | 2020-08-12 17:34 | NUR ---
PT WANTING TO STAY OVERNIGHT, WILL CK WITH CM
--- NOTE | 2020-08-12 18:00 | NUR ---
PREP STARTED, NPO AFTER MN TONIGHT, NIGHT SANDS AWARE OF NEED FOR CONSENTS
--- NOTE | 2020-08-12 19:20 | NUR ---
pt states that he has no ride home and can not leave tonight, suad andino aware and ok for pt to stay till tomorrow, pt aware and request pain meds for dc
[2020-08-12 20:00] VITALS: BP 136/72
[2020-08-13] VITALS: BP 137/74
[2020-08-13 04:00] VITALS: BP 136/86
[2020-08-13 06:52] LABS: HEMOGLOBIN 12.7 g/dL (13.5-17.5); LYMPHOCYTE ABS# 0.91 10x3/uL (1.32-3.57); MCH 29.3 pg (26.0-34.0); MCHC 32.6 g/dL (31.0-37.0); MCV 89.9 fL (80.0-100.0); MEAN PLATELET VOLUME 10.1 fL (7.4-10.4); NEUTROPHIL ABS# 1.41 10x3/uL (1.78-5.38); PLATELET COUNT 60 10x3/uL (130-400); RBC 4.34 10x6/uL (4.20-6.10); RDW 16.2 % (11.5-14.5); WBC 2.8 10x3/uL (4.8-10.8)
[2020-08-13 07:32] LABS: ALKALINE PHOSPHATASE 73 U/L (30-120); ALT (SGPT) 91 U/L (10-68); BILIRUBIN - TOTAL 0.94 mg/dL (0.2-1.3); CALC OSMOLALITY 280 mosm/kg (275-300); CALCIUM 8.2 mg/dL (8.5-10.1); CARBON DIOXIDE 28.1 mmol/L (21.0-32.0); CHLORIDE - SERUM 105 mmol/L (98-107); CREATININE - SERUM 0.5 mg/dL (0.6-1.3); GLUCOSE 141 mg/dL (74-106); POTASSIUM - SERUM 3.8 mmol/L (3.5-5.1); PROTEIN - SERUM 5.6 g/dL (6.4-8.2); SODIUM 141 mmol/L (136-145); eGFR NON AFRICAN AMERICAN > 90 mL/min (90-120)
[2020-08-13 07:35] LABS: UREA NITROGEN 8 mg/dL (7-18)
--- NOTE | 2020-08-13 07:40 | NUR ---
PT AAO X 4 AND SITTING AT SIDE OF BED. RESPIRATIONS ARE EVEN AND UNLABORED. PT MOTHER AT BEDSIDE. PT DENIES PRESENCE OF PAIN/N/V/DYSPNEA/SOB AT THIS TIME. PT STATES THAT HE IS READY TO BE DISCHARGED AND "GO HOME". ALL DISCHARGE PAPERS COVERED WITH PT AND PT MOTHER BOTH VERBAL AND WRITTEN. ALL DISCHARGE PAPERS SIGNED BY PT. SIGNED DC PAPERS PLACED IN PT CHART. PT REQUESTS TO AMBULATE FREELY OUT OF ROOM FOR TRANSPORTATION HOME. PIV TO RIGHT FA REMOVED WITH CATHETER TIP INTACT. DRESSING APPLIED. PT DENIES FURTHER QUESTIONS/CONCERNS/NEEDS AT THIS TIME. PT AMBULATES FROM ROOM AT PT REQUEST. PT STATES THAT HE DOES HAVE ALL PERSONAL BELONGINGS AND DENIES NEEDS.
[2020-08-13 09:41] LABS: EOSINOPHILS 1 % (0-7); LYMPHOCYTES 30 % (15-50); MONOCYTES 8 % (2-11); NEUTROPHILS 61 % (40-80); PLATELET ESTIMATE DECREASED
[2020-08-13 09:42] LABS: ANISOCYTOSIS OCC; ROULEAUX OCC
== END 2020-08-13 07:57 | disposition home or self-care (01) | DRG 378 ==
LOC: D.ER 14:27 → D.ICU 19:56 → D.CVICU 19:56 → D.MS 19:56 → D.CVICU 08-08 16:00 → D.MS 08-10 11:43
PROVIDERS: Emergency Medicine; Family Medicine; Internal Medicine Hematology & Oncology; Specialist; ADMIT Family Medicine; ATTEND Family Medicine
PROC: 07DR3ZX Extraction of Iliac Bone Marrow, Percutaneous Approach, Diagnostic (ICD-10-PCS; principal; 2020-08-12 13:00)
DX: K92.0 Hematemesis (principal); I48.20 Chronic atrial fibrillation, unspecified; N39.0 Urinary tract infection, site not specified; I47.1 Supraventricular tachycardia; D69.6 Thrombocytopenia, unspecified; R74.01 Elevation of levels of liver transaminase levels; K70.30 Alcoholic cirrhosis of liver without ascites; F10.10 Alcohol abuse, uncomplicated; E11.9 Type 2 diabetes mellitus without complications; G35 Multiple sclerosis; Z79.4 Long term (current) use of insulin